=== PATIENT | male | born 1940 | race Caucasian/White ===

== ENCOUNTER → 2017-10-30 | Outpatient (CLI) | payer MEDICARE, BC ==
[~2017-10-30] MED LIST: ACET-2031 PO; ADV100/50 INH; ADV250/50 INH; ALB0.5 INH; ALB18R INH; AMLO-104 PO; AMLO-96 PO; AMLO2.5T74 PO; ASCO-201 PO; ATEN-65 PO; ATEN100T93 PO; AZIT-101 PO; BUDE90AE2; CALC500T42 PO; CEF300 PO; CEPH-13 PO; CETI-358 PO; CETI10CA8 PO; CHOL200038 PO; CYAN100088 PO; CYAN1TAB68 PO; ESCI10TA8 PO; FLUT12HF2 IH; FLUT16SP19 NS; FLUT16SP20; GLUC-232 PO; GLUC500C29 PO; GUALA600 PO; GUIDMUD PO; HCTZ25 PO; IBU200 PO; LISI-362 PO; LISI2.5T60 PO; LISI20TA29 PO; LUTE20CA11 PO; MON10; MONT10TA PO; MULT-60 PO; MULTI VITS; OMEG-36 PO; OMEP-125 PO; OXYC-865 PO; OXYGEN NS; PAN40 PO; POTA75TA PO; PRE10 PO; RIVA20TA PO; SODI44SP17 NS; SPIR25TA78 PO; SUC1 PO; TOLT1TAB PO; UNK BP MED; VALS1TAB8 PO; VITA-198 PO; VITAMIN B 12 PO; ZIA10 PO; [UNRECOGNIZED DRUG - CODE]
[2017-10-30 15:36] LABS: PLATELET COUNT, AUTOMATED 194 K/uL (150-450)
== END ==
LOC: LAB 15:28
PROVIDERS: ATTEND Family Medicine
DX: I10 Essential (primary) hypertension (principal); E55.9 Vitamin D deficiency, unspecified; E53.8 Deficiency of other specified B group vitamins
CPT/HCPCS: 36415; 82040; 82247; 82306; 82310; 82374; 82435; 82565; 82607; 82947; 84075; 84132; 84155; 84295; 84450; 84460; 84520; 85025

== ENCOUNTER 2018-05-23 01:39 | Inpatient (IN) | payer MEDICARE, BC ==
[2018-05-17 15:01] LABS: PLATELET COUNT, AUTOMATED 249 K/uL (150-450)
--- NOTE | 2018-05-17 15:10 | EKG ---
FACILITY: [facility] PATIENT NAME: TIGRE CABALLERO : [id number] MR: [id number] V: [id number] EXAM DATE: ORDERING PHYSICIAN: LOBO CABALLERO TECHNOLOGIST: Test Reason : Blood Pressure : / mmHG Vent. Rate : 074 BPM Atrial Rate : 258 BPM P-R Int : 000 ms QRS Dur : 094 ms QT Int : 420 ms P-R-T Axes : 000 -47 022 degrees QTc Int : 466 ms Atrial fibrillation Left anterior fascicular block Abnormal ECG When compared with ECG of 01-JUL-2017 22:15, No significant change was found Confirmed by Anselmo Engle ([id number]) on 05/17/2018 3:43:51 PM Referred By: Confirmed By:Anselmo Hernandez
[~2018-05-23] VITALS: Ht 170.2 cm; Wt 101.6 kg
[2018-05-23] VITALS (14 sets, daily range): BP systolic 94–135; BP diastolic 66–95
[~2018-05-23 01:39] MED LIST changes: +CALC1WAF; +CETI-169 PO; +CHOL200025 PO; +LOSA100T67 PO; +MELA1TAB38; -SPIR25TA78 PO; +SPIR25TA80 PO; +VIT1CAPS9
[2018-05-23] MEDS ORDERED: NORMOSOL R SOLN(*) 1000 ML BAG 1,000 ML IV PRN (06:00)
[2018-05-23] MEDS ORDERED: ACETAMINOPHEN 500 MG TAB PO ONE (06:00)
[2018-05-23] MEDS ORDERED: ceFAZolin(*) 2GM/D5W 50ML 50 ML IVPB ONE (06:00)
[2018-05-23] MEDS ORDERED: FAMOTIDINE 20 MG TAB PO ONE (06:00)
[2018-05-23] MEDS ORDERED: MIDAZOLAM 2 MG/2 ML VIAL IVP PRN (06:00)
[2018-05-23] MEDS ORDERED: PREGABALIN 75 MG CAPSULE PO ONE (06:00)
[2018-05-23] MEDS ORDERED: LIDOCAINE/SOD BICARB 8.4% SYR ID ONE (06:00)
[2018-05-23] MEDS ORDERED: LIDOCAINE MPF 1% 5 ML VIAL ONE (06:21)
[2018-05-23] MEDS ORDERED: PROPOFOL EMUL(*) 10MG/ML 20 ML 20 ML ONE (06:21)
[2018-05-23] MEDS ORDERED: ROCURONIUM BROM 10 MG/ML 10 ML ONE (06:21)
[2018-05-23] MEDS ORDERED: DEXAMETHASONE SOD PHOS 10MG/ML ONE (06:21)
[2018-05-23] MEDS ORDERED: ONDANSETRON 4 MG/2 ML VIAL ONE (06:21)
[2018-05-23] MEDS ORDERED: SODIUM CHLORIDE 0.9% ONE (06:23)
[2018-05-23] MEDS ORDERED: fentaNYL CITR 100 MCG/2 ML AMP ONE ×2 (06:24→11:42)
[2018-05-23] MEDS ORDERED: REMIFENTANIL HCL 1 MG VIAL ONE ×2 (06:25→09:35)
[2018-05-23] MEDS ORDERED: PHENYLEPHRINE 10 MG/1 ML VIAL ONE (06:31)
[2018-05-23] MEDS ORDERED: THROMBIN (BOVINE) 20,000 UNIT VIAL ONE (06:49)
[2018-05-23] MEDS ORDERED: TRANEXAMIC AC 1000 MG/10ML SDV 1,000 MG in DEXTROSE 5% 50 ML BAG 50 ML IVPB ONE (08:55)
[2018-05-23] MEDS ORDERED: ROPIVACAINE 0.2% 20 ML VIAL ONE (11:11)
--- NOTE | 2018-05-23 11:26 | RADIOLOGY IMAGING REPORT ---
FACILITY: [facility] [place] PATIENT NAME: Devonte Price : 1940 MR: [id number] V: [id number] EXAM DATE: [id number] ORDERING PHYSICIAN: LOBO PRICE TECHNOLOGIST: Location: [facility] [place] Patient: Devonte Price : 1940 Visit/Account:[id number] Date of Sevice: 05/23/2018 EXAMINATION: Intraoperative radiographs of the lumbar spine 05/23/2018 6:37 AM HISTORY: L-3-4, L4-5 LAMINECTOMIES COMPARISON: Lumbar MR 02/07/2018 FLUOROSCOPY TIME: No fluoroscopy was utilized FINDINGS: Intraoperative radiographic imaging was provided without active fluoroscopy. Imaging of t he lumbar spine shows posterior localization with final image demonstrating L3-L5 fusion. IMPRESSION: Intraoperative imaging during lower lumbar fusion. Report Dictated By: Carlos Alvarenga MD at 05/23/2018 11:13 AM Report E-Signed By: Carlos Alvarenga MD at 05/23/2018 11:22 AM WSN:[email or web address]
[2018-05-23] MEDS ORDERED: BISACODYL 10 MG SUPP PR PRN (12:25)
[2018-05-23] MEDS ORDERED: ONDANSETRON 4 MG/2 ML VIAL IVP PRN (12:25)
[2018-05-23] MEDS ORDERED: ACETAMINOPHEN 500 MG TAB PO PRN (12:25)
[2018-05-23] MEDS ORDERED: MAGNESIUM HYDROXIDE* 30ML UDCP PO PRN (12:25)
[2018-05-23] MEDS ORDERED: diphenhydrAMINE 25 MG CAP PO PRN (12:25)
[2018-05-23] MEDS ORDERED: FLUSH 10 ML SYR IVP PRN (12:25)
[2018-05-23] MEDS ORDERED: LR(*) 1000 ML BAG 1,000 ML IV PRN (12:25)
[2018-05-23] MEDS ORDERED: ACETAMINOPHEN(*)1000 MG/100 ML 100 ML IVPB PRN (12:25)
[2018-05-23] MEDS ORDERED: BENZOCAINE/MENTHOL 1 EACH LOZG PO PRN (12:25)
[2018-05-23] MEDS ORDERED: HYPROMELLOSE 0.4% LUB 15ML BTL OU PRN (13:35)
[2018-05-23] MEDS ORDERED: ALBUTEROL 8 GM INHALER INH PRN (13:35)
[2018-05-23] MEDS: oxyCODONE HCL 5 MG CAP PO PRN ×2 (13:40→22:23)
--- NOTE | 2018-05-23 13:47 | Hospitalist Progress Note ---
Subjective Progress Notes Subjective Patient seen post-op. Reviewed PMHx and medications. At present he reports doing well. No CP/SOB/N/V. Physical Exam Vital Signs Date Time Temp Pulse Resp B/P (MAP) Pulse Ox O2 Delivery O2 Flow Rate FiO2 05/23/18 12:44 97.9 63 12 116/84 (95) 94 Nasal Cannula 2.0 General Appearance: Alert, Awake Cardiovascular: Other (Irregular with distant tones) Respiratory: Clear to Auscultation GI: Soft and Non-Tender Extremities: Warm, Perfused Psych: Alert & Oriented X3 Assessment and Plan Problems: (1) Atrial fibrillation Status: Chronic Assessment & Plan: He appears to be rate controlled without medication. He has been managed with Xarelto 20mg daily for CVA prophylaxis. Will hold the Xarelto for now and resume when Dr. Price is agreeable. (2) HTN (hypertension) Status: Chronic Assessment & Plan: Will monitor BPs and resume losartan when needed. (3) DENISHA (obstructive sleep apnea) Status: Chronic Assessment & Plan: Continue CPAP. (4) Intrinsic asthma Status: Chronic Assessment & Plan: Continue Singulair and albuterol. He has also been using guaifenesin. ESTHELA MARTINI MD May 23, 2018 13:47
[2018-05-23] MEDS ORDERED: MELA5TAB6 PO (13:53)
[2018-05-23] MEDS ORDERED: LOSA50TA72 PO (13:53)
--- NOTE | 2018-05-23 14:33 | OPERATIVE REPORT 1 ---
EVENT DATE: May 23, 2018 SURGEON: Tony Price MD ANESTHESIOLOGIST: Jose Bahena MD ANESTHESIA: General endotracheal. GOVERNMENT PROGRAM MANAGER: YESSI He PREOPERATIVE DIAGNOSIS Lumbar spinal stenosis with lumbar third vertebra-lumbar fourth vertebra (L3-L4) and lumbar fourth vertebra-lumbar fifth vertebra (L4-L5) spondylolisthesis. POSTOPERATIVE DIAGNOSIS Lumbar spinal stenosis with lumbar third vertebra-lumbar fourth vertebra (L3-L4) and lumbar fourth vertebra-lumbar fifth vertebra (L4-L5) spondylolisthesis. PROCEDURE PERFORMED Lumbar third vertebra (L3)- lumbar fifth vertebra (L5) laminectomy with lumbar third vertebra (L3)-lumbar fifth vertebra (L5) posterior lateral instrumented fusion. IV FLUIDS 2200 cc. ESTIMATED BLOOD LOSS 160 cc. IMPLANTS USED 6.5 mm x 50 mm Reline pedicle screws from [employer] x6, 5.5 mm x 60 mm connecting rods from [employer] x2 and locking caps from [employer] 46. SPECIMENS None. DRAINS None. COMPLICATIONS None, DISPOSITION Post-anesthesia Care Unit. INDICATIONS FOR SURGERY Mr. Price is a 78-year-old gentleman who presented to my clinic with the chief complaint of radiating bilateral lower extremity pain, numbness and tingling. He noted significant decrease in walking tolerance secondary to heaviness and tiredness of the legs, worse on the right than the left. He did have some urge incontinence of urine but no issues with fecal incontinence. His physical examination was significant for a positive straight leg raising maneuver bilaterally with decreased strength in the right tibialis anterior at 4/5 compared to 5/5 on the left. His extensor hallucis longus was 4+/5 on the left, 4/5 on the right and peroneals were 4/5 bilaterally. Light touch sensation was intact in all dermatomal distributions. Diagnostic studies showed an auto fusion of L2-L3 and severe spinal stenosis at L3-L4 and L4-L5 with a retrolisthesis of L3 and L4 and anterolisthesis of L4 and L5. Secondary to ongoing symptoms and failure of nonsurgical treatment including physical therapy, injections, medications and activity modifications, the patient was offered and elected to undergo L3-L5 laminectomy and L3-L5 posterior lateral instrumented fusion. Prior to surgery, I explained in detail to the patient the possible risks of surgery. These risks include bleeding, infection, damage to surrounding structures, need for further surgery, persistent and/or worsening pain, nerve root injury, spinal fluid lead, meningitis, , blindness, sexual dysfunction, autonomic nervous system dysfunction and other unforeseen medical and surgical complications. An understanding that in general spinal surgery is more predictive at improving extremity discomfort than axial spine pain was stressed. DESCRIPTION OF PROCEDURE On the date of surgery, the patient was met in the preoperative hold area and all questions were answered. The operative site was identified and marked by myself. He was brought in good condition to the operating room and after succumbing to anesthesia was positioned in the prone position on a Mat table. All bony protuberances and soft tissues were well padded in the standard fashion. Care was taken to maintain appropriate perfusion pressures during anesthesia. Preoperative antibiotics were administered according to the appropriate timing schedule. At the conclusion of the procedure, sponge and needle counts were correct x2. A final time-out was undertaken by members of the operating team to confirm correct patient, correct levels and correct surgery. A vertical midline incision was then made over the intended spinal levels and sharp dissection was carried out down to the posterior elements. The lumbar dorsal fascia was incised with electrocautery device and soft tissues were elevated off the posterior elements in a subperiosteal manner. A lateral radiograph was obtained to confirm appropriate spinal levels. Starting points for pedicle screws at L3, L4 and L5 were cleared of soft tissues using the electrocautery device. This point was at approximately the intersection of the pars intra-articularis, the mid point of the transverse process and the lateral border of the superior articular process of each respected vertebrae. We then packed the lateral gutters with thrombin soaked sponges and proceeded with the laminectomy. A Leksell rongeur and Ben bone cutter was used to remove the spinous processes of L3 and L4. A midline decompression was then performed, first thinning the lamina with the Leksell rongeur and a high speed bur. The canal was entered by undermining the superior insertion of the ligamentum flavum from the inferior surface of the L4 lamina. A Ellsworth elevator was used to separate the dura for many adhesions to surrounding bone and soft tissue prior to use of the Kerrison punch. A midline decompression was performed using 3-0 and 4-0 Kerrison rongeurs. We then turned our attention to bilateral lateral recess decompressions at both the L3-L4 and the L4-L5 levels. There was severe stenosis secondary to facet hypertrophy and ligamentum flavum thickening so this took quite some time. Ultimately, however, we were able to achieve an excellent decompression and at the conclusion of the decompression a Bren elevator was run down the lateral recesses as well as out the foramina of involved nerve roots to ensure complete decompression. Hemostasis was obtained by utilizing FloSeal and surgical patties in the lateral recesses of the canal bilaterally. Attention was then turned to placement of pedicle screws. Starting points for pedicle screws were identified bilaterally at L3, L4 and L5. Again, this was at approximately the intersection of the pars intra-articularis, the midpoint of the transverse process and the lateral border of the facet/superior articular process. A 5 mm bur was used to decorticate the overlying bone and a Lenke type probe was advanced against resistance through the pedicle. A ball tip feeler was used to palpate the pedicle superiorly, inferiorly, medially and laterally as well as distally to confirm absence of bony breaching. Appropriate length screws were selected; in this case, 6.5 mm x 50 mm in length. Screws were placed in this manner bilaterally at L3, L4 and L5 using the same size screw for all pedicles. Each screw was tested with neurophysiologic monitoring and this confirmed absence of bony breaching. 5.5 mm x 60 mm connecting rods were then selected. The screw head adjustor was used to align the tulips and the connecting rods were then placed. A locking cap was placed and tightened in the L3 screws bilaterally and then we used a reduction tool to reduce the L4 vertebrae using the pedicle screws. Locking caps were then placed in all screws bilaterally and a lateral radiograph was obtained that showed excellent positioning of the screws. The final tightening device was then used and all screws were finally tightened. The transverse process of the L3-L4 and L4-L5 vertebrae were then decorticated with a high speed bur and local bone graft that had been run through the bone mill was packed in the lateral gutters for a posterior lateral fusion. The wound had previously been irrigated with greater than 2 liters of copious sterile saline solution and at this point we then closed the incision with a running suture for the deep fascia, interrupted sutures for the subcutaneous tissue and a running subcuticular skin stitch. Sponge and needle counts were correct x2. POSTOPERATIVE CARE PLAN The patient will remain in the hospital until he meets discharge criteria, tolerating p.o. with good pain control and with clearance from physical therapy. He will follow up in my clinic in two weeks' time for wound check and examination. MILLIE
[2018-05-23] MEDS ORDERED: ceFAZolin(*) 2GM/D5W 50ML 50 ML IVPB SCH (15:00)
[2018-05-23] MEDS: MONTELUKAST SODIUM 10 MG TAB PO SCH (21:04)
[2018-05-23] MEDS: DOCUSATE SODIUM 100 MG CAP PO SCH (21:04)
[2018-05-23] MEDS: guaiFENesin 600 MG TABCR PO SCH (21:04)
[2018-05-23] MEDS: CEFAZOLIN IVPB SCH (22:23)
[2018-05-23] MEDS: NS 0.9% IVPB SCH (22:23)
[2018-05-24 05:48] VITALS: BP 123/80
[2018-05-24] MEDS: oxyCODONE HCL 5 MG CAP PO PRN ×4 (06:03→20:38)
[2018-05-24] MEDS: DIAZEPAM 5 MG TAB PO PRN ×3 (06:03→20:39)
[2018-05-24] MEDS ORDERED: SIMETHICONE 80 MG CHEW CHEW PRN (06:05)
[2018-05-24] MEDS: NS 0.9% IVPB SCH (06:17)
[2018-05-24] MEDS: CEFAZOLIN IVPB SCH (06:17)
[2018-05-24 07:09] VITALS: BP 108/80
[2018-05-24] MEDS: DOCUSATE SODIUM 100 MG CAP PO SCH ×2 (09:18→20:38)
[2018-05-24] MEDS: guaiFENesin 600 MG TABCR PO SCH ×2 (09:18→20:38)
[2018-05-24] MEDS: HYPROMELLOSE 0.4% LUB 15ML BTL OU PRN ×2 (09:19→11:31)
[2018-05-24] MEDS: LOSARTAN POTASSIUM 50 MG TAB PO SCH (09:20)
[2018-05-24 09:26] VITALS: BP 115/69
--- NOTE | 2018-05-24 11:05 | RADIOLOGY IMAGING REPORT ---
FACILITY: [facility] [place] PATIENT NAME: Devonte Price : 1940 MR: [id number] V: [id number] EXAM DATE: ORDERING PHYSICIAN: LOBO PRICE TECHNOLOGIST: Location: [facility] Patient: Devonte Price : 1940 Visit/Account:[id number] Date of Sevice: 05/24/2018 Two-view lumbar spine COMPARISONS: Views of the lumbar spine dated May 23, 2018 ADDITIONAL PERTINENT HISTORY: Postop FINDINGS: Postoperative changes: Patient status post previous posterior interbody fusion of L3-L5. Bilateral l aminectomies at L3-L4 and L4-L5. Vertebral body heights and alignments: Mild retrolisthesis of L3 on L4, L2 on L3 and L1 on L2. Mild retrolisthesis of L5 on S1. Mild scoliotic curvature convex to the left centered at L2-L3. Vertebral bodies: Endplate sclerosis and osteophyte formation and facet hypertrophic changes at multi ple levels within the lumbar spine. No bony fractures noted. Disc spaces: Disc space narrowing at multiple levels within the lumbar spine. Visualized bony pelvis: Negative. Surrounding soft tissues: Minimal atherosclerotic disease of the abdominal aorta. IMPRESSION: 1. Scoliotic, spondylitic and postoperative changes as detailed above. 2. No acute appearing bony abnormalities. Report Dictated By: Valentin Miller MD at 05/24/2018 10:57 AM Report E-Signed By: Valentin Miller MD at 05/24/2018 11:00 AM WSN:[email or web address]
[2018-05-24] MEDS: HYDROmorphone HCL 2 MG/ML SDV IVP PRN (11:14)
[2018-05-24 11:24] VITALS: BP 106/75
[2018-05-24 12:00] VITALS: Ht 170.2 cm; Wt 101.6 kg
--- NOTE | 2018-05-24 13:10 | Hospitalist Progress Note ---
Subjective Progress Notes Subjective He has complaints of back pain. He had no acute events overnight. Patient Complains of: Cardiovascular: No: Chest Pain Respiratory: No: Shortness of Breath Physical Exam Vital Signs Date Time Temp Pulse Resp B/P (MAP) Pulse Ox O2 Delivery O2 Flow Rate FiO2 05/24/18 11:24 99.5 90 12 106/75 (85) 91 Nasal Cannula 2.0 Intake and Output 05/24/18 06:59 Intake Total 3648 ml Output Total 900 ml Balance 2748 ml Intake Oral 1820 ml IV Total 1828 ml Output Urine Total 900 ml # Voids 2 General Appearance: Alert, Awake, No Acute Distress, Afebrile Neuro: No Gross deficits Cardiovascular: Regular Rate and Rhythm Respiratory: No Respiratory Distress, Clear to Auscultation Psych: Alert & Oriented X3, Appropriate Mood & Affect Assessment and Plan Problems: (1) Atrial fibrillation Status: Chronic Assessment & Plan: He appears to be rate controlled without medication. He has been managed with Xarelto 20mg daily for CVA prophylaxis. Will hold the Xarelto for now and resume when Dr. Price is agreeable. (2) HTN (hypertension) Status: Chronic Assessment & Plan: Will monitor BPs and resume losartan when needed. (3) DENISHA (obstructive sleep apnea) Status: Chronic Assessment & Plan: Continue CPAP. (4) Intrinsic asthma Status: Chronic Assessment & Plan: Continue Singulair and albuterol. He has also been using guaifenesin. Exam Sepsis Risk: No Definite Risk DOLORES AMADORP May 24, 2018 13:10
[2018-05-24 14:31] VITALS: BP 120/82
[2018-05-24] MEDS: APAP/HYDROCODONE 325/5 TAB PO PRN (16:08)
[2018-05-24 19:59] VITALS: BP 114/81
[2018-05-24] MEDS: MONTELUKAST SODIUM 10 MG TAB PO SCH (20:38)
[2018-05-25] MEDS: oxyCODONE HCL 5 MG CAP PO PRN ×7 (00:16→23:56)
[2018-05-25 00:19] VITALS: BP 116/84
[2018-05-25] MEDS: DIAZEPAM 5 MG TAB PO PRN ×3 (05:27→19:28)
[2018-05-25 07:37] VITALS: BP 102/78
[2018-05-25] MEDS: guaiFENesin 600 MG TABCR PO SCH ×2 (08:40→21:40)
[2018-05-25] MEDS: DOCUSATE SODIUM 100 MG CAP PO SCH ×2 (08:40→21:40)
[2018-05-25] MEDS: LOSARTAN POTASSIUM 50 MG TAB PO SCH (09:00)
[2018-05-25] MEDS: HYDROmorphone HCL 2 MG/ML SDV IVP PRN (09:15)
[2018-05-25] MEDS: RIVAROXABAN 10 MG TAB PO SCH (11:22)
--- NOTE | 2018-05-25 11:36 | Hospitalist Progress Note ---
Subjective Progress Notes Subjective He has complaints of pain and decreased mobility. He had no acute events overnight. Patient Complains of: Cardiovascular: No: Chest Pain Respiratory: No: Shortness of Breath Physical Exam Vital Signs Date Time Temp Pulse Resp B/P (MAP) Pulse Ox O2 Delivery O2 Flow Rate FiO2 05/25/18 08:10 92 Nasal Cannula 1.0 05/25/18 07:37 99.0 86 20 102/78 (86) Intake and Output 05/25/18 06:59 Intake Total 862 ml Output Total 500 ml Balance 362 ml Intake Oral 812 ml IV Total 50 ml Output Urine Total 500 ml # Voids 1 General Appearance: Alert, Awake, No Acute Distress, Afebrile Neuro: No Gross deficits Cardiovascular: Regular Rate and Rhythm Respiratory: No Respiratory Distress, Clear to Auscultation Psych: Alert & Oriented X3, Appropriate Mood & Affect Assessment and Plan Problems: (1) Atrial fibrillation Status: Chronic Assessment & Plan: He appears to be rate controlled without medication. He has been managed with Xarelto 20mg daily for CVA prophylaxis. His Xarelto will be restarted today 05/25. (2) HTN (hypertension) Status: Chronic Assessment & Plan: Will monitor BPs and resume losartan when needed. (3) DENISHA (obstructive sleep apnea) Status: Chronic Assessment & Plan: Continue CPAP. (4) Intrinsic asthma Status: Chronic Assessment & Plan: Continue Singulair and albuterol. He has also been using guaifenesin. Exam Sepsis Risk: No Definite Risk DOLORES AMADOR CORNER CUTTER MACHINE OPERATOR May 25, 2018 11:36
[2018-05-25 12:22] VITALS: BP 111/92
[2018-05-25] MEDS: MONTELUKAST SODIUM 10 MG TAB PO SCH (21:40)
[2018-05-25 21:41] VITALS: BP 98/83
--- NOTE | 2018-05-26 06:35 | Hospitalist Progress Note ---
Subjective Progress Notes Subjective He is still having significant surgical site pain and some spasms. Physical Exam Vital Signs Date Time Temp Pulse Resp B/P (MAP) Pulse Ox O2 Delivery O2 Flow Rate FiO2 05/25/18 21:41 92 Nasal Cannula 1.0 05/25/18 21:41 99.1 85 16 98/83 (88) Intake and Output 05/26/18 06:59 Intake Total 1340 ml Output Total 450 ml Balance 890 ml Intake Oral 1340 ml Output Urine Total 450 ml # Voids 2 General Appearance: Alert, Awake Cardiovascular: Other (Irregular distant tones) Respiratory: Clear to Auscultation (anteriorly) Assessment and Plan Problems: (1) Atrial fibrillation Status: Chronic Assessment & Plan: He has been rate controlled without medication. He is now back on his usual Xarelto 20mg daily for CVA prophylaxis. (2) HTN (hypertension) Status: Chronic Assessment & Plan: Will monitor BPs and resume losartan when needed. (3) DENISHA (obstructive sleep apnea) Status: Chronic Assessment & Plan: Continue CPAP. (4) Intrinsic asthma Status: Chronic Assessment & Plan: Continue Singulair and albuterol. He has also been using guaifenesin. Exam Sepsis Risk: No Definite Risk ESTHELA MARTINI MD May 26, 2018 06:35
[2018-05-26] MEDS: HYDROmorphone HCL 2 MG/ML SDV IVP PRN ×2 (07:29→18:18)
[2018-05-26 08:04] VITALS: BP 98/71
[2018-05-26] MEDS: DOCUSATE SODIUM 100 MG CAP PO SCH ×2 (09:00→20:40)
[2018-05-26] MEDS: RIVAROXABAN 10 MG TAB PO SCH (09:00)
[2018-05-26] MEDS: LOSARTAN POTASSIUM 50 MG TAB PO SCH (09:00)
[2018-05-26] MEDS: guaiFENesin 600 MG TABCR PO SCH ×2 (09:00→20:40)
[2018-05-26] MEDS: oxyCODONE HCL 5 MG CAP PO PRN (09:36)
[2018-05-26] MEDS: DIAZEPAM 5 MG TAB PO PRN ×2 (09:37→16:14)
[2018-05-26 12:20] VITALS: BP 113/85
[2018-05-26] MEDS: APAP/HYDROCODONE 325/5 TAB PO PRN ×2 (12:27→23:50)
[2018-05-26 16:03] VITALS: BP 113/83
[2018-05-26] MEDS: ALBUTEROL 8 GM INHALER INH PRN (16:57)
[2018-05-26 20:33] VITALS: BP 129/84
[2018-05-26] MEDS: MONTELUKAST SODIUM 10 MG TAB PO SCH (21:23)
[2018-05-26 23:33] VITALS: BP 130/86
[2018-05-27 03:28] VITALS: BP 107/73
[2018-05-27 05:48] LABS: PLATELET COUNT, AUTOMATED 185 K/uL (150-450)
[2018-05-27 07:01] VITALS: BP 112/78
[2018-05-27] MEDS: guaiFENesin 600 MG TABCR PO SCH ×2 (08:29→22:06)
[2018-05-27] MEDS: DIAZEPAM 5 MG TAB PO PRN (08:29)
[2018-05-27] MEDS: oxyCODONE HCL 5 MG CAP PO PRN ×2 (08:30→15:35)
[2018-05-27] MEDS: DOCUSATE SODIUM 100 MG CAP PO SCH ×2 (08:31→22:06)
[2018-05-27] MEDS: RIVAROXABAN 10 MG TAB PO SCH (08:31)
[2018-05-27] MEDS: LOSARTAN POTASSIUM 50 MG TAB PO SCH (08:37)
--- NOTE | 2018-05-27 10:37 | Hospitalist Progress Note ---
Subjective Progress Notes Subjective 78M admitted for lumbar stenosis, LYNDA overnight. Sleepy this am after pain Rx. Patient Complains of: Neurological: No: Confusion, Weakness Gastrointestinal: No Nausea, No Vomiting Musculoskeletal: Pain Physical Exam Vital Signs Date Time Temp Pulse Resp B/P (MAP) Pulse Ox O2 Delivery O2 Flow Rate FiO2 05/27/18 07:01 98.0 72 18 112/78 (89) 96 Bi-PAP 1.0 Intake and Output 05/27/18 06:59 Intake Total 175 ml Output Total 280 ml Balance -105 ml Intake Oral 175 ml Output Urine Total 280 ml # Voids 5 General Appearance: No Acute Distress Neuro: No Gross deficits Eyes: PERRLA ENT: Normal (on simple mask.) Neck: No Masses Cardiovascular: Normal Rhythm & Peripheral Pulses Respiratory: Clear to Auscultation GI: Soft and Non-Tender Musculoskeletal: Other (back/hip pain) Extremities: Soft and Non Tender, Warm, Pulses; No Edema Integumentary: Skin Intact without Lesion / Mass Result Diagram: 05/27/1852405/27/18524 Assessment and Plan Problems: (1) Atrial fibrillation Status: Chronic Assessment & Plan: He has been rate controlled without medication. He is now back on his usual Xarelto 20mg daily for CVA prophylaxis. (2) Spinal stenosis Assessment & Plan: Post laminectomy and fusion. Reportedly progressing slow. Reports significant pain and is very lethargic due to pain medications. Per primary. (3) HTN (hypertension) Status: Chronic Assessment & Plan: Will monitor BPs and resume losartan when needed. (4) DENISHA (obstructive sleep apnea) Status: Chronic Assessment & Plan: Continue CPAP. (5) Intrinsic asthma Status: Chronic Assessment & Plan: Continue Singulair and albuterol. He has also been using guaifenesin. Exam Sepsis Risk: No Definite Risk GRIGGS ALLIE RODRÍGUEZ DO May 27, 2018 10:37
[2018-05-27] MEDS: APAP/HYDROCODONE 325/5 TAB PO PRN (12:05)
[2018-05-27] MEDS: POLYETHYLENE GLYCOL 17 GM PKT PO SCH (12:05)
--- NOTE | 2018-05-27 12:15 | RADIOLOGY IMAGING REPORT ---
FACILITY: [facility] [place] PATIENT NAME: Devonte Price : 1940 MR: [id number] V: [id number] EXAM DATE: ORDERING PHYSICIAN: TYREE ESPINOZA TECHNOLOGIST: [place] [facility] [place]onte [place] : 1940 Visit/Account:[id number] Date of Sevice: 05/27/2018 LUMBAR SPINE 2 OR 3 VIEW INDICATION: Postop laminectomy. COMPARISON: February 21, 2018. FINDINGS: AP and lateral view of the lumbar spine. There are 5 nonrib-bearing lumbar vertebral bodi es. Postsurgical changes from L3 through L5 with by pedicular screws and posterior rods in bony fusio n changes. The alignment is maintained and unchanged from previous examination. No periprosthetic reymundo encies. No acute abnormality seen in the postsurgical region. Lumbar spine does show a continued left ivy convexity. No compression fractures, bony lesions or spondylolysis. There is diffuse degenerativ e changes with disposition, endplate changes, ostitis and facet arthropathy. The endplates are mainta ined. The pedicles are well seen. Soft tissues unremarkable. Surgical clips in the right abdomen is u nchanged. IMPRESSION: 1. Postsurgical changes from L3 through L5 without sequelae. 2. Degenerative changes without acute abnormality. Report Dictated By: Juan Luis Peter at 05/27/2018 12:08 PM Report E-Signed By: Juan Luis Peter at 05/27/2018 12:11 PM WSN:[id number]
[2018-05-27 15:29] VITALS: BP 108/75
[2018-05-27 19:19] VITALS: BP 126/59
[2018-05-27] MEDS: MONTELUKAST SODIUM 10 MG TAB PO SCH (22:06)
[2018-05-27 23:03] VITALS: BP 120/74
[2018-05-28] MEDS ORDERED: DIAZEPAM 5 MG TAB PO PRN (07:30)
--- NOTE | 2018-05-28 07:49 | Hospitalist Progress Note ---
Subjective Progress Notes Subjective He has been very slow to mobilize. He continues to have surgical site pain. Physical Exam Vital Signs Date Time Temp Pulse Resp B/P (MAP) Pulse Ox O2 Delivery O2 Flow Rate FiO2 05/27/18 23:03 99.1 95 20 120/74 (89) 90 Oxy Mask 1.0 Intake and Output 05/28/18 06:59 Intake Total 300 ml Output Total 400 ml Balance -100 ml Intake Oral 300 ml Output Urine Total 400 ml # Voids 4 # Bowel Movements 1 General Appearance: Alert, Awake Cardiovascular: Regular Rate and Rhythm Respiratory: Clear to Auscultation Extremities: Warm, Perfused Result Diagram: 05/28/18 0724 05/27/18 0525 Assessment and Plan Problems: (1) Atrial fibrillation Status: Chronic Assessment & Plan: He has been rate controlled without medication. He is now back on his usual Xarelto 20mg daily for CVA prophylaxis. (2) Spinal stenosis Assessment & Plan: Post laminectomy and fusion. Progressing very slowly. Reports significant pain and is somewhat lethargic due to pain medications. Will try to achieve reasonable pain control with Lortab/low dose diazepam. (3) HTN (hypertension) Status: Chronic Assessment & Plan: His BPs have been in normal range without medications. Will monitor BPs and resume losartan only when needed. (4) DENISHA (obstructive sleep apnea) Status: Chronic Assessment & Plan: Continue CPAP. (5) Intrinsic asthma Status: Chronic Assessment & Plan: Continue Singulair and albuterol. He has also been using guaifenesin. Exam Sepsis Risk: No Definite Risk ESTHELA MARTINI MD May 28, 2018 07:49
[2018-05-28 08:13] VITALS: BP 132/88
[2018-05-28] MEDS: DOCUSATE SODIUM 100 MG CAP PO SCH (08:50)
[2018-05-28] MEDS: RIVAROXABAN 10 MG TAB PO SCH (08:51)
[2018-05-28] MEDS: guaiFENesin 600 MG TABCR PO SCH (08:51)
[2018-05-28] MEDS: APAP/HYDROCODONE 325/5 TAB PO PRN (08:51)
[2018-05-28] MEDS: POLYETHYLENE GLYCOL 17 GM PKT PO SCH (08:51)
[2018-05-28] MEDS: HYPROMELLOSE 0.4% LUB 15ML BTL OU PRN (08:53)
[2018-05-28] MEDS: ALBUTEROL 8 GM INHALER INH PRN (08:53)
== END 2018-05-28 11:10 | DRG 460 ==
LOC: OR 01:39 → MED 12:45
PROVIDERS: ADMIT Orthopaedic Surgery; ATTEND Orthopaedic Surgery
PROC: 01NB0ZZ Release Lumbar Nerve, Open Approach (ICD-10-PCS; 2018-05-23)
PROC: 5A09357 Assistance with Respiratory Ventilation, Less than 24 Consecutive Hours, Continuous Positive Airway Pressure (ICD-10-PCS; 2018-05-23)
PROC: 0SG1071 Fusion of 2 or more Lumbar Vertebral Joints with Autologous Tissue Substitute, Posterior Approach, Posterior Column, Open Approach (ICD-10-PCS; principal; 2018-05-23 07:11)
DX: M48.061 Spinal stenosis, lumbar region without neurogenic claudication (principal); M43.16 Spondylolisthesis, lumbar region; M54.16 Radiculopathy, lumbar region; I48.2 Chronic atrial fibrillation; I10 Essential (primary) hypertension; G47.33 Obstructive sleep apnea (adult) (pediatric); J45.909 Unspecified asthma, uncomplicated; M10.9 Gout, unspecified; K21.9 Gastro-esophageal reflux disease without esophagitis; G89.18 Other acute postprocedural pain; Z79.01 Long term (current) use of anticoagulants; Z99.81 Dependence on supplemental oxygen; Z98.84 Bariatric surgery status; Z90.49 Acquired absence of other specified parts of digestive tract
CPT/HCPCS: 36415; 72020; 72100; 82040; 82247; 82310; 82374; 82435; 82565; 82947; 84075; 84132; 84155; 84295; 84443; 84450; 84460; 84520; 85018; 85025; 86850; 86900; 86901; 93005; 94640; 97161; C1713; J0690; J1100; J1170; J2001; J2370; J2405; J2704; J2795; J3010; J3535; J7050

== ENCOUNTER 2018-05-28 11:10 | Inpatient (IN) | payer MEDICARE, BC ==
[2018-05-24 12:00] VITALS: Ht 170.2 cm; Wt 102.1 kg
[~2018-05-28] VITALS: Ht 170.2 cm; Wt 102.1 kg
[~2018-05-28 11:10] MED LIST changes: +AMLO-111 PO; -AMLO-96 PO; -AMLO2.5T74 PO; +AMLO2.5T76 PO; -LOSA100T67 PO; +LOSA100T69 PO; +LOSA50TA74 PO; +MELA5TAB6 PO
[2018-05-28] MEDS ORDERED: ACETAMINOPHEN 500 MG TAB PO PRN (11:43)
[2018-05-28] MEDS ORDERED: BENZOCAINE/MENTHOL 1 EACH LOZG PO PRN (11:43)
[2018-05-28] MEDS ORDERED: HYPROMELLOSE 0.4% LUB 15ML BTL OU PRN (11:43)
[2018-05-28] MEDS ORDERED: MAGNESIUM HYDROXIDE* 30ML UDCP PO PRN (11:43)
[2018-05-28] MEDS ORDERED: APAP/HYDROCODONE 325/5 TAB PO PRN (11:43)
[2018-05-28] MEDS ORDERED: BISACODYL 10 MG SUPP PR PRN (11:43)
[2018-05-28 11:55] VITALS: BP 122/73
[2018-05-28] MEDS ORDERED: FLUTICASONE PROP 0.05% 16 GM ENA PRN (12:05)
[2018-05-28 16:10] VITALS: BP 122/79
--- NOTE | 2018-05-28 17:34 | PT ECF NOTE ---
Type of Note: Initial Note Primary Medical Diagnosis: S/P L3-L5 laminectomy with L-L5 posterior lateral instrumented fusion (05/23/18) Physical Therapy Evaluation Date: 05/28/18 SUBJECTIVE: Prior Hospitalization: [facility] 05/23/18-05/28/18 Prior Level of Function: Perla with use of RW (pt's spouse reports that he was ambulating short household distances at [facility]) Prior Living Status: Single level house, Spouse Community Services: Support adequate Home Accessibility: 3 stairs with rails, All needs on one level Equipment Owned: Front wheeled walker, Rollator Medical Complications/Past Medical History: See EMR for details Psychosocial Support: supportive Pain Scale (0-10): 5-6/10 OBJECTIVE: Strength: Right Lower Extremity: DF: <3/5 Knee flexion: 4/5 Knee extension:3+/5 Hip flexion: <3/5 Left Lower Extremity: DF: 4/5 Knee flexion: 4/5 Knee extension: 4/5 Hip flexion: <3/5 ROM: Lacking full AROM of R) DF Sensation: WNL Other Neuro findings: None noted Bed Mobility: Not tested, pt up in chair when PT arrived for evaluation Transfers: Max A x2 for STS with RW, MaxA x1 STS with EZ lift Gait: Pt unable Stairs: Not attempted Timed Up and Go (>12 seconds indicated increased risk for falls): Pt unable 10 meter walk test (0.6m/second cannot function independently): Pt unable Other Objective Measures: Pt unable ASSESSMENT: PT provided step by step verbal and tactile cues for scooting to edge of chair as well as foot and hand placement prior to initiation of STS transfer. Pt requires increased time and encouragement in preparation for transfers. PT/OT provided mod-maxA x 2 for STS with RW. Pt reports glut spasm and inability to stand, therefore sat back into bree chair. A second STS with RW was completed, but pt was unable to successfully initiate ambulation upon standing. EZ lift was utilized with maxAx1 in order to stand. 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 Pt currently reports lack of confidence with all mobility. He will benefit from skilled PT intervention in order to increase tolerance to all functional mobility and decrease need of assistance from others prior to d/c home. Problem List/Current Limitations: Pain Decreased activity edvin Decreased strength Decreased ROM Decreased balance Decreased problem solving Decreased initiation Short Term Goals: 1: Pt to complete STS transfers with Perla and least restrictive AD 2: Pt to ambulate 50' with Perla and least restrictive AD 3: Pt to complete bed mobility with log roll technique and Perla 4: Pt to demonstrate ability to blajinder/doff LSO with Alisha from spouse. Brake Lining Maker Goals: Pt to d/c home with decreased need of assistance from others Patient Goals: Discharge home with spouse Rehabilitation Prognosis: Fair Barriers for Discharge: High levels of pain, increased somnolence with use of pain medication, decreased confidence PLAN: The patient will benefit from skilled physical therapy services 5 times per week for 2 weeks including: Therapeutic Exercise Therapeutic Activities Transfer Training Gait Training Stair Training Manual Therapy ADL's Safety Training Neuromuscular Re-educ. Pt/Caregiver Training Bed Mobility Thank you for this referral. If you have any questions, concerns, or comments about this report or plan, please contact me at . Ju De Guzman, PT, DPT [facility]
--- NOTE | 2018-05-28 18:21 | OT ECF NOTE ---
Type of Note: Initial Note Primary Medical Diagnosis: Generalized weakness s/p L3-L5 laminectomy with L3-L5 PLIF. Lumbar precautions, LSO donned as tolerated with ambulation Occupational Therapy Evaluation Date: 05/28/18 SUBJECTIVE: Prior Hospitalization: [facility] 05/23/18 thru 05/28/18. DOS: 05/23/[address] Price Prior Level of Function: Modified Independent with 4WW. Assist from spouse for IADLs. Spouse reports pt ambulated short household distances prior to sx. Prior Living Status: Single level house Spouse Assist by family Community Services: No known needs Home Accessibility: Stairs with rails All needs on one level Tub/shower combination Equipment Owned: Front wheeled walker Rollator Extended tub bench Medical Complications/Past Medical History: Please refer to EMR Psychosocial Support: Supportive spouse Pain Scale (0-10): 10.5/10. Emotional support, positioning, and ice offered. OBJECTIVE: Strength: MMT: Right Left Shoulder Flexion WFL WFL Elbow Flexion WFL WFL Wrist Extension WFL WFL Casing Material Weigher WFL WFL (5= normal, 4= good, 3= fair, 2= poor, 1= trace) ROM: Both upper extremities, WFL Sensation: Intact, no concerns Functional Transfer: Assistive Device: Front wheeled [id number] Ax2 sit<>stands. Pt unable to tolerate upright position or ambulation EZ/Patient assisted lift-Max Ax1 Gait belt ADL: Upper body dressing: Assistive device: Upper body dressing ability: N/T Lower body dressing: Assistive device: None-Will benefit from LB AE education Lower body dressing ability: Max-Total Ax1 with use of sit<>stand Toileting: Assistive device: Raised toilet seat, Grab rails Toileting ability: Maximum assistance Grooming/hygiene: Assistive device: Grooming ability: N/T Bathing: Assistive device: Bathing ability: N/T Standardized Assessment: Cassi Index of Activities of Daily Livin/20 upon initial evaluation (05/28/18). ASSESSMENT: "El[place]" presents to [facility] requiring 2 person assist for sit<>stands with RW and Max Ax1 for mobility with EZ lift. At [facility], he was ambulating Mod (I) household distances and (I) with ADLs. He will benefit from skilled OT service to improve activity tolerance and optimize (I) with ADLs. Problem List/Current Limitations: Pain Decreased activity tolerance Decreased strength Decreased ROM Generalized weakness Poor safety awareness Decreased initiation Short Term Goals: 1) Pt will be Mod (I) toilet task. 2) Pt will be Mod (I) UB/LB dressing. 3) Pt will be Mod (I) grooming/hygiene. 4) Pt will be Min A shower task. 5) Pt Cassi Index of ADLs score will improve by 2 points. Roundhouse Supervisor Goals: Return home with assist from spouse for IADLs and possible service s Patient Goals: Return home Rehabilitation Prognosis: Fair Barriers to Discharge: Pain, Motivation, Decreased mobility at PLOF PLAN: The patient will benefit from skilled occupational therapy services 5 times per week for 2 weeks including: Ther ex ADL training Safety training Ther act IADL training Transfer training Adaptive equip training Bed mobility Energy conservation Thank you for this referral. If you have any questions, concerns, or comments about this report or plan, please contact me at . Taryn Myers MS, OTR/L Occupational Therapist MILLIE
--- NOTE | 2018-05-28 18:32 | Consultant Pharmacy Review ---
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 Lexicomp Interaction Analysis A = No known interaction C = Monitor therapy X = Avoid combination B = No action needed D = Consider therapy modification Drugs in this analysis: Acetaminophen; Albuterol; Ascorbic Acid; Beta-Carotene; Bisacodyl; Cepacol (CAN); Cetirizine (Systemic); Cholecalciferol; Cyanocobalamin; DiazePAM; Docusate Sodium (SYN); Fluticasone (Nasal); Glucosamine; GuaiFENesin; Lortab; Maalox [OTC]; MiraLax [OTC]; Montelukast; Multivitamins/Minerals (with AE, No Iron); Simethicone; Vitamin E (Systemic); Xarelto * Drug-Drug Interactions D Bisacodyl Maalox [OTC] (Antacids) D Cetirizine (Systemic) (MUD PLANT OPERATOR Depressants) Lortab (HYDROcodone) D DiazePAM (MUD PLANT OPERATOR Depressants) Lortab (HYDROcodone) C Cetirizine (Systemic) (MUD PLANT OPERATOR Depressants) DiazePAM (MUD PLANT OPERATOR Depressants) C Cholecalciferol (Vitamin D Analogs) Maalox [OTC] (Calcium Salts) C Vitamin E (Systemic) Xarelto (Anticoagulants) B Acetaminophen Lortab (Opioid Analgesics) B Albuterol (Beta2-Agonists) Fluticasone (Nasal) (Corticosteroids) B DiazePAM Maalox [OTC] (Antacids) Pneumococcal Vaccine HX Pneumo Vac ([id number]): Yes (11-10-2014) HX Pneumo Vac (Pneumovax): Yes (07-13-2011) Comments Regarding the Review No concerns at this time aside from keeping the use of diazepam and lortab at a minimum (as possible) due to his age and risk for falls/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 MD Notified?: No KIRAN MUNROE May 28, 2018 18:31
[2018-05-28] MEDS: guaiFENesin 600 MG TABCR PO SCH (20:28)
[2018-05-28] MEDS: MELATONIN 3 MG TAB PO SCH (20:28)
[2018-05-28] MEDS: DOCUSATE SODIUM 100 MG CAP PO SCH (20:28)
[2018-05-28] MEDS: MONTELUKAST SODIUM 10 MG TAB PO SCH (20:28)
[2018-05-28] MEDS: APAP/HYDROCODONE 325/5 TAB PO PRN (20:31)
[2018-05-29] MEDS: APAP/HYDROCODONE 325/5 TAB PO PRN ×2 (06:01→15:50)
[2018-05-29 08:00] VITALS: BP 108/69
[2018-05-29] MEDS: POLYETHYLENE GLYCOL 17 GM PKT PO SCH (08:55)
[2018-05-29] MEDS: CETIRIZINE HCL 10 MG TAB PO SCH (08:55)
[2018-05-29] MEDS: BETA-CAROTENE(A) & E/MIN TAB PO SCH (08:56)
[2018-05-29] MEDS: ASCORBIC ACID 500 MG TAB PO SCH (08:56)
[2018-05-29] MEDS: RIVAROXABAN 10 MG TAB PO SCH (08:57)
[2018-05-29] MEDS: CYANOCOBALAMIN 1000 MCG TAB PO SCH (08:57)
[2018-05-29] MEDS: MULTIVITAMINS TAB PO SCH (08:57)
[2018-05-29] MEDS: guaiFENesin 600 MG TABCR PO SCH ×2 (08:57→20:32)
[2018-05-29] MEDS: CHOLECALCIFEROL 1000 UNIT TAB PO SCH (08:57)
[2018-05-29] MEDS: DOCUSATE SODIUM 100 MG CAP PO SCH ×2 (08:57→20:32)
[2018-05-29] MEDS: GLUCOSAMINE-CHONDROITIN CAP PO SCH (08:57)
[2018-05-29] MEDS: VITAMIN E 400 INTLU CAP PO SCH (08:57)
--- NOTE | 2018-05-29 13:09 | Medical Nutrition Therapy ---
Nutrition Anthropometrics Height (Inches): 67.00 Height (Calculated Centimeters: 170.039806 Weight (Pounds): 231 Weight (Calculated Kilograms): 104.865 BMI: 36.2 Jase Nutrition Score: Adequate Jase Nutrition Risk Score: 17 Dietary Referral Nutrition Risk Factors: Nutrition Risk Comment: Physical Findings Physical Appearance: Obese BMI 30-39 Skin Appearance Skin Appearance: Edema Edema Location Modifier: Edema Location: Type of Edema: Degree of Edema: Gastrointestinal Symptoms GI Symtoms: Constipation Tube Present: Bowel Sounds: Recent Bowel Pattern: Constipated Stool Characteristics: Nutritional Diagnosis Nutritional Risk Acuity 4: Good Appetite Past Medical History: Hx of Afib, HTN, DENISHA, and intrinsic asthma. Nutritional Acuity: 4-Low Diet Type: Diet as Tolerated ERNESTINA/REG Nutrition Intervention: Cont diet as ordered, Encourage intake Nutrition Monitoring & Eval RD Patient Assessment Time: [address] Assessment Type: RD Assessment Patient Nutrition Acuity: 4-Low Follow Up Date: Jun 05, 2018 Nutritional Comment: 05/29. Admitted for therapy and strengthening after back surgery. Pt is on ERNESTINA, and has consumed 50-90% of regular sized meals. Pt is 67in, 231lbs, and has a obese class 2 BMI of 36.2. No updated labs available for pt. Encourage intake and monitor labs. ANNETTEHIEU May 29, 2018 08:26
[2018-05-29 15:30] VITALS: BP 121/75
[2018-05-29] MEDS: MELATONIN 3 MG TAB PO SCH (20:32)
[2018-05-29] MEDS: MONTELUKAST SODIUM 10 MG TAB PO SCH (20:32)
[2018-05-30 07:22] VITALS: BP 124/81
[2018-05-30] MEDS: APAP/HYDROCODONE 325/5 TAB PO PRN ×3 (07:41→23:38)
[2018-05-30] MEDS: GLUCOSAMINE-CHONDROITIN CAP PO SCH (09:17)
[2018-05-30] MEDS: POLYETHYLENE GLYCOL 17 GM PKT PO SCH (09:17)
[2018-05-30] MEDS: CHOLECALCIFEROL 1000 UNIT TAB PO SCH (09:18)
[2018-05-30] MEDS: CETIRIZINE HCL 10 MG TAB PO SCH (09:18)
[2018-05-30] MEDS: CYANOCOBALAMIN 1000 MCG TAB PO SCH (09:18)
[2018-05-30] MEDS: ASCORBIC ACID 500 MG TAB PO SCH (09:18)
[2018-05-30] MEDS: guaiFENesin 600 MG TABCR PO SCH ×2 (09:18→20:53)
[2018-05-30] MEDS: VITAMIN E 400 INTLU CAP PO SCH (09:18)
[2018-05-30] MEDS: BETA-CAROTENE(A) & E/MIN TAB PO SCH (09:18)
[2018-05-30] MEDS: DOCUSATE SODIUM 100 MG CAP PO SCH ×2 (09:18→20:53)
[2018-05-30] MEDS: MULTIVITAMINS TAB PO SCH (09:19)
[2018-05-30] MEDS: RIVAROXABAN 10 MG TAB PO SCH (09:19)
--- NOTE | 2018-05-30 14:33 | Hospitalist Progress Note ---
Subjective Progress Notes Subjective He has not been progressing well with ambulation. He reports he is only able to stand by the bed or get to the chair. He has complaints of increased muscle pain in the left upper thigh. Patient Complains of: Cardiovascular: No: Chest Pain Respiratory: No: Shortness of Breath Physical Exam Vital Signs Date Time Temp Pulse Resp B/P (MAP) Pulse Ox O2 Delivery O2 Flow Rate FiO2 05/30/18 12:37 97 Room Air 05/30/18 08:04 74 14 05/30/18 07:22 99.2 124/81 (95) 05/29/18 15:30 0.5 Intake and Output 05/30/18 06:59 Intake Total 800 ml Output Total 900 ml Balance -100 ml Intake Oral 800 ml Output Urine Total 900 ml # Voids 6 # Bowel Movements 1 General Appearance: Alert, Awake, No Acute Distress, Afebrile Neuro: No Gross deficits Cardiovascular: Regular Rate and Rhythm Respiratory: No Respiratory Distress, Other (expiratory wheezes) GI: Soft and Non-Tender Musculoskeletal: Other (lateral muscles to left thigh feel tight upon palpation) Extremities: Warm, Perfused; No Edema Psych: Alert & Oriented X3, Appropriate Mood & Affect Assessment and Plan Problems: (1) Spinal stenosis Status: Acute Assessment & Plan: Post laminectomy and fusion. Progressing very slowly. Reports significant pain and muscle tightness. Will try to achieve reasonable pain control with Lortab/low dose diazepam. (2) Atrial fibrillation Status: Chronic Assessment & Plan: He has been rate controlled without medication. He is now back on his usual Xarelto 20mg daily for CVA prophylaxis. (3) HTN (hypertension) Status: Chronic Assessment & Plan: His BPs have been in normal range without medications. Will monitor BPs and resume losartan only when needed. (4) Intrinsic asthma Status: Chronic Assessment & Plan: Continue Singulair and albuterol. He has also been using guaifenesin. He reports he also uses Advair HFA at home, will resume Advair inhaler. Continue prn albuterol nebulizers. (5) DENISHA (obstructive sleep apnea) Status: Chronic Assessment & Plan: Continue CPAP. DOLORES AMADORP May 30, 2018 14:33
[2018-05-30] MEDS: SALMETEROL/FLUTIC 250/50 1 INH INH SCH ×2 (17:02→20:25)
[2018-05-30 20:00] VITALS: BP 104/71
[2018-05-30] MEDS: DIAZEPAM 5 MG TAB PO PRN (20:53)
[2018-05-30] MEDS: MONTELUKAST SODIUM 10 MG TAB PO SCH (20:53)
[2018-05-30] MEDS: MELATONIN 3 MG TAB PO SCH (20:53)
[2018-05-31 07:45] VITALS: BP 92/44
[2018-05-31] MEDS: VITAMIN E 400 INTLU CAP PO SCH (08:53)
[2018-05-31] MEDS: CYANOCOBALAMIN 1000 MCG TAB PO SCH (08:53)
[2018-05-31] MEDS: CHOLECALCIFEROL 1000 UNIT TAB PO SCH (08:53)
[2018-05-31] MEDS: BETA-CAROTENE(A) & E/MIN TAB PO SCH (08:53)
[2018-05-31] MEDS: DOCUSATE SODIUM 100 MG CAP PO SCH ×2 (08:53→20:35)
[2018-05-31] MEDS: guaiFENesin 600 MG TABCR PO SCH ×2 (08:54→20:34)
[2018-05-31] MEDS: GLUCOSAMINE-CHONDROITIN CAP PO SCH (08:54)
[2018-05-31] MEDS: MULTIVITAMINS TAB PO SCH (08:54)
[2018-05-31] MEDS: CETIRIZINE HCL 10 MG TAB PO SCH (08:54)
[2018-05-31] MEDS: POLYETHYLENE GLYCOL 17 GM PKT PO SCH (08:54)
[2018-05-31] MEDS: RIVAROXABAN 10 MG TAB PO SCH (08:54)
[2018-05-31] MEDS: ASCORBIC ACID 500 MG TAB PO SCH (08:54)
[2018-05-31] MEDS: APAP/HYDROCODONE 325/5 TAB PO PRN ×2 (10:21→16:37)
[2018-05-31 10:39] VITALS: BP 111/66
[2018-05-31 16:40] VITALS: BP 103/71
[2018-05-31] MEDS: SALMETEROL/FLUTIC 250/50 1 INH INH SCH ×2 (18:00→20:49)
[2018-05-31] MEDS: MELATONIN 3 MG TAB PO SCH (20:34)
[2018-05-31] MEDS: MONTELUKAST SODIUM 10 MG TAB PO SCH (20:34)
[2018-05-31] MEDS: DIAZEPAM 5 MG TAB PO PRN (20:35)
[2018-06-01] MEDS: SALMETEROL/FLUTIC 250/50 1 INH INH SCH ×2 (05:40→18:00)
[2018-06-01] MEDS: APAP/HYDROCODONE 325/5 TAB PO PRN ×2 (07:39→13:47)
[2018-06-01 07:43] VITALS: BP 132/72
[2018-06-01] MEDS: ALBUTEROL 8 GM INHALER INH PRN (08:08)
[2018-06-01] MEDS: MULTIVITAMINS TAB PO SCH (08:38)
[2018-06-01] MEDS: CETIRIZINE HCL 10 MG TAB PO SCH (08:38)
[2018-06-01] MEDS: GLUCOSAMINE-CHONDROITIN CAP PO SCH (08:38)
[2018-06-01] MEDS: VITAMIN E 400 INTLU CAP PO SCH (08:38)
[2018-06-01] MEDS: ASCORBIC ACID 500 MG TAB PO SCH (08:38)
[2018-06-01] MEDS: CHOLECALCIFEROL 1000 UNIT TAB PO SCH (08:39)
[2018-06-01] MEDS: RIVAROXABAN 10 MG TAB PO SCH (08:39)
[2018-06-01] MEDS: guaiFENesin 600 MG TABCR PO SCH ×2 (08:39→20:28)
[2018-06-01] MEDS: BETA-CAROTENE(A) & E/MIN TAB PO SCH (08:39)
[2018-06-01] MEDS: DOCUSATE SODIUM 100 MG CAP PO SCH ×2 (08:39→19:28)
[2018-06-01] MEDS: POLYETHYLENE GLYCOL 17 GM PKT PO SCH (08:39)
[2018-06-01] MEDS: CYANOCOBALAMIN 1000 MCG TAB PO SCH (08:39)
[2018-06-01 17:17] VITALS: BP 140/65
[2018-06-01] MEDS: MELATONIN 3 MG TAB PO SCH (20:28)
[2018-06-01] MEDS: MONTELUKAST SODIUM 10 MG TAB PO SCH (20:28)
[2018-06-02] MEDS: SALMETEROL/FLUTIC 250/50 1 INH INH SCH ×2 (05:31→18:01)
[2018-06-02 08:14] VITALS: BP 109/70
[2018-06-02] MEDS: POLYETHYLENE GLYCOL 17 GM PKT PO SCH (09:00)
[2018-06-02] MEDS: DOCUSATE SODIUM 100 MG CAP PO SCH ×2 (09:00→20:49)
[2018-06-02] MEDS: RIVAROXABAN 10 MG TAB PO SCH (09:20)
[2018-06-02] MEDS: VITAMIN E 400 INTLU CAP PO SCH (09:20)
[2018-06-02] MEDS: guaiFENesin 600 MG TABCR PO SCH ×2 (09:20→20:47)
[2018-06-02] MEDS: CHOLECALCIFEROL 1000 UNIT TAB PO SCH (09:20)
[2018-06-02] MEDS: BETA-CAROTENE(A) & E/MIN TAB PO SCH (09:21)
[2018-06-02] MEDS: MULTIVITAMINS TAB PO SCH (09:21)
[2018-06-02] MEDS: CYANOCOBALAMIN 1000 MCG TAB PO SCH (09:21)
[2018-06-02] MEDS: APAP/HYDROCODONE 325/5 TAB PO PRN ×2 (09:21→15:24)
[2018-06-02] MEDS: CETIRIZINE HCL 10 MG TAB PO SCH (09:22)
[2018-06-02] MEDS: GLUCOSAMINE-CHONDROITIN CAP PO SCH (09:22)
[2018-06-02] MEDS: ASCORBIC ACID 500 MG TAB PO SCH (09:22)
[2018-06-02 15:20] VITALS: BP 126/78
[2018-06-02] MEDS: SIMETHICONE 80 MG CHEW CHEW PRN (19:28)
[2018-06-02] MEDS: MELATONIN 3 MG TAB PO SCH (20:47)
[2018-06-02] MEDS: DIAZEPAM 5 MG TAB PO PRN (20:48)
[2018-06-02] MEDS: MONTELUKAST SODIUM 10 MG TAB PO SCH (20:48)
[2018-06-03] MEDS: SALMETEROL/FLUTIC 250/50 1 INH INH SCH ×2 (05:27→13:14)
[2018-06-03 07:20] VITALS: BP 133/71
[2018-06-03] MEDS: DOCUSATE SODIUM 100 MG CAP PO SCH ×2 (09:00→21:00)
[2018-06-03] MEDS: POLYETHYLENE GLYCOL 17 GM PKT PO SCH (09:00)
[2018-06-03] MEDS: VITAMIN E 400 INTLU CAP PO SCH (09:11)
[2018-06-03] MEDS: guaiFENesin 600 MG TABCR PO SCH ×2 (09:11→21:06)
[2018-06-03] MEDS: RIVAROXABAN 10 MG TAB PO SCH (09:11)
[2018-06-03] MEDS: CETIRIZINE HCL 10 MG TAB PO SCH (09:12)
[2018-06-03] MEDS: CYANOCOBALAMIN 1000 MCG TAB PO SCH (09:12)
[2018-06-03] MEDS: GLUCOSAMINE-CHONDROITIN CAP PO SCH (09:12)
[2018-06-03] MEDS: MULTIVITAMINS TAB PO SCH (09:12)
[2018-06-03] MEDS: CHOLECALCIFEROL 1000 UNIT TAB PO SCH (09:12)
[2018-06-03] MEDS: BETA-CAROTENE(A) & E/MIN TAB PO SCH (09:12)
[2018-06-03] MEDS: ASCORBIC ACID 500 MG TAB PO SCH (09:13)
[2018-06-03 16:45] VITALS: BP 138/81
[2018-06-03] MEDS: MONTELUKAST SODIUM 10 MG TAB PO SCH (21:06)
[2018-06-03] MEDS: MELATONIN 3 MG TAB PO SCH (21:06)
[2018-06-03] MEDS: DIAZEPAM 5 MG TAB PO PRN (21:06)
[2018-06-03] MEDS: SIMETHICONE 80 MG CHEW CHEW PRN (21:06)
[2018-06-04] MEDS: SALMETEROL/FLUTIC 250/50 1 INH INH SCH ×2 (05:22→16:09)
[2018-06-04 07:20] VITALS: BP 129/71
[2018-06-04] MEDS: POLYETHYLENE GLYCOL 17 GM PKT PO SCH (09:00)
[2018-06-04] MEDS: DOCUSATE SODIUM 100 MG CAP PO SCH ×2 (09:00→21:00)
[2018-06-04] MEDS: BETA-CAROTENE(A) & E/MIN TAB PO SCH (09:08)
[2018-06-04] MEDS: guaiFENesin 600 MG TABCR PO SCH ×2 (09:08→21:22)
[2018-06-04] MEDS: CHOLECALCIFEROL 1000 UNIT TAB PO SCH (09:08)
[2018-06-04] MEDS: MULTIVITAMINS TAB PO SCH (09:08)
[2018-06-04] MEDS: VITAMIN E 400 INTLU CAP PO SCH (09:08)
[2018-06-04] MEDS: CYANOCOBALAMIN 1000 MCG TAB PO SCH (09:08)
[2018-06-04] MEDS: ASCORBIC ACID 500 MG TAB PO SCH (09:09)
[2018-06-04] MEDS: RIVAROXABAN 10 MG TAB PO SCH (09:09)
[2018-06-04] MEDS: GLUCOSAMINE-CHONDROITIN CAP PO SCH (09:09)
[2018-06-04] MEDS: CETIRIZINE HCL 10 MG TAB PO SCH (09:09)
[2018-06-04] MEDS: APAP/HYDROCODONE 325/5 TAB PO PRN (10:56)
--- NOTE | 2018-06-04 13:22 | Medical Nutrition Therapy ---
Nutrition Anthropometrics Height (Inches): 67.00 Height (Calculated Centimeters: 170.402974 Weight (Pounds): 231 Weight (Calculated Kilograms): 104.865 BMI: 36.2 Jase Nutrition Score: Adequate Jase Nutrition Risk Score: 15 Dietary Referral Nutrition Risk Factors: Nutrition Risk Comment: Physical Findings Physical Appearance: Obese BMI 30-39 Skin Appearance Skin Appearance: Edema Edema Location Modifier: Both Edema Location: Leg Type of Edema: Degree of Edema: Gastrointestinal Symptoms GI Symtoms: Change in Bowel Pattern Tube Present: Bowel Sounds: Recent Bowel Pattern: Constipated Stool Characteristics: Nutritional Diagnosis Nutritional Risk Acuity 4: Good Appetite Past Medical History: Hx of Afib, HTN, DENISHA, and intrinsic asthma. Nutritional Acuity: 4-Low Diet Type: Diet as Tolerated ERNESTINA/REG Nutrition Intervention: Cont diet as ordered, Encourage intake Nutrition Monitoring & Eval RD Patient Assessment Time: [address] Assessment Type: RD Re-Assessment Patient Nutrition Acuity: 4-Low Follow Up Date: Jun 12, 2018 Nutritional Comment: 05/29. Admitted for therapy and strengthening after back surgery. Pt is on ERNESTINA, and has consumed 50-90% of regular sized meals. Pt is 67in, 231lbs, and has a obese class 2 BMI of 36.2. No updated labs available for pt. Encourage intake and monitor labs. MR /10. Pt very weak and progressing very slowly. Cont on ERNESTINA, consuming 75-100% of regular sized meals. Generally pt refuses an afternoon snack. No new labs available. No weight gain or loss. Will cont to monitor pt and encourage intake. ANNETTEHIEU Jun 04, 2018 08:08
[2018-06-04 15:10] VITALS: BP 117/77
[2018-06-04] MEDS: ALBUTEROL 8 GM INHALER INH PRN (16:09)
[2018-06-04] MEDS: MELATONIN 3 MG TAB PO SCH (21:22)
[2018-06-04] MEDS: SIMETHICONE 80 MG CHEW CHEW PRN (21:22)
[2018-06-04] MEDS: DIAZEPAM 5 MG TAB PO PRN (21:22)
[2018-06-04] MEDS: MONTELUKAST SODIUM 10 MG TAB PO SCH (21:22)
[2018-06-05 08:00] VITALS: BP 123/76
[2018-06-05] MEDS: DOCUSATE SODIUM 100 MG CAP PO SCH ×2 (08:46→21:00)
[2018-06-05] MEDS: guaiFENesin 600 MG TABCR PO SCH ×2 (08:47→20:43)
[2018-06-05] MEDS: POLYETHYLENE GLYCOL 17 GM PKT PO SCH (08:47)
[2018-06-05] MEDS: MULTIVITAMINS TAB PO SCH (08:48)
[2018-06-05] MEDS: BETA-CAROTENE(A) & E/MIN TAB PO SCH (08:48)
[2018-06-05] MEDS: VITAMIN E 400 INTLU CAP PO SCH (08:49)
[2018-06-05] MEDS: CYANOCOBALAMIN 1000 MCG TAB PO SCH (08:49)
[2018-06-05] MEDS: ASCORBIC ACID 500 MG TAB PO SCH (08:50)
[2018-06-05] MEDS: CHOLECALCIFEROL 1000 UNIT TAB PO SCH (08:50)
[2018-06-05] MEDS: GLUCOSAMINE-CHONDROITIN CAP PO SCH (08:51)
[2018-06-05] MEDS: CETIRIZINE HCL 10 MG TAB PO SCH (08:51)
[2018-06-05] MEDS: RIVAROXABAN 10 MG TAB PO SCH (08:51)
[2018-06-05] MEDS: ALBUTEROL 8 GM INHALER INH PRN (10:40)
[2018-06-05] MEDS: SIMETHICONE 80 MG CHEW CHEW PRN (15:46)
[2018-06-05 15:50] VITALS: BP 110/75
[2018-06-05] MEDS: MELATONIN 3 MG TAB PO SCH (20:43)
[2018-06-05] MEDS: MONTELUKAST SODIUM 10 MG TAB PO SCH (20:43)
[2018-06-06 06:32] LABS: PLATELET COUNT, AUTOMATED 417 K/uL (150-450)
[2018-06-06 08:00] VITALS: BP 107/59
[2018-06-06] MEDS: DOCUSATE SODIUM 100 MG CAP PO SCH (08:58)
[2018-06-06] MEDS: BETA-CAROTENE(A) & E/MIN TAB PO SCH (08:58)
[2018-06-06] MEDS: GLUCOSAMINE-CHONDROITIN CAP PO SCH (08:58)
[2018-06-06] MEDS: CHOLECALCIFEROL 1000 UNIT TAB PO SCH (08:58)
[2018-06-06] MEDS: RIVAROXABAN 10 MG TAB PO SCH (08:58)
[2018-06-06] MEDS: CYANOCOBALAMIN 1000 MCG TAB PO SCH (08:59)
[2018-06-06] MEDS: guaiFENesin 600 MG TABCR PO SCH (08:59)
[2018-06-06] MEDS: MULTIVITAMINS TAB PO SCH (08:59)
[2018-06-06] MEDS: ASCORBIC ACID 500 MG TAB PO SCH (08:59)
[2018-06-06] MEDS: VITAMIN E 400 INTLU CAP PO SCH (08:59)
[2018-06-06] MEDS: CETIRIZINE HCL 10 MG TAB PO SCH (08:59)
[2018-06-06] MEDS: POLYETHYLENE GLYCOL 17 GM PKT PO SCH (09:00)
[2018-06-06] MEDS ORDERED: CALC250T7 PO (13:44)
[2018-06-06] MEDS ORDERED: TRIA10.8 NS (13:44)
[2018-06-06] MEDS ORDERED: CYAN100071 SL (13:44)
[2018-06-06] MEDS ORDERED: LOR5/325 PO (13:47)
[2018-06-06] MEDS ORDERED: DIA5 PO (13:47)
--- NOTE | 2018-06-06 13:53 | Hospitalist Progress Note ---
Subjective Progress Notes Subjective The patient states his back hurts occasionally but the muscle spasm has improved and he is able to get around. He feels comfortable going home. Physical Exam Vital Signs Date Time Temp Pulse Resp B/P (MAP) Pulse Ox O2 Delivery O2 Flow Rate FiO2 06/06/18 11:30 92 Room Air 06/06/18 08:00 98.1 60 16 107/59 (75) Intake and Output 06/06/18 06:59 Intake Total 1245 ml Output Total 700 ml Balance 545 ml Intake Oral 1245 ml Output Urine Total 700 ml # Voids 2 # Bowel Movements 2 General Appearance: Alert, Awake, No Acute Distress Neuro: No Gross deficits Eyes: PERRLA Cardiovascular: Regular Rate and Rhythm Respiratory: Clear to Auscultation GI: Soft and Non-Tender Extremities: Warm, Perfused, Other (No edema.) Psych: Appropriate Mood & Affect Result Diagram: 06/06/1862406/06/18624 Assessment and Plan Problems: (1) Spinal stenosis Status: Acute Assessment & Plan: Post laminectomy and fusion. Progressing well now. Reports some pain but muscle tightness is markedly improved. Will DC today. Will send with a weeks worth of Lortab and Valium. (2) Atrial fibrillation Status: Chronic Assessment & Plan: He has been rate controlled without medication. He is now back on his usual Xarelto 20mg daily for CVA prophylaxis. (3) HTN (hypertension) Status: Chronic Assessment & Plan: His BPs have been in normal range without medications. The patient will monitor his BP at home and restart medication if his systolic BP is over 140. (4) Intrinsic asthma Status: Chronic Assessment & Plan: Continue Singulair, Advair HFA and albuterol. He has also been using guaifenesin. (5) DENISHA (obstructive sleep apnea) Status: Chronic Assessment & Plan: Continue CPAP. Time Spent on Plan of Care: < 30 min ZAKIYA MARTINI MD Jun 06, 2018 13:53
--- NOTE | 2018-06-06 15:53 | OT ECF NOTE ---
Type of Note: Discharge Note Primary Medical Diagnosis: Generalized weakness s/p L3-L5 laminectomy with L3-L5 PLIF. Lumbar precautions, LSO donned as tolerated with ambulation Occupational Therapy Evaluation Date: 05/28/18 SUBJECTIVE: Prior Hospitalization: [facility] 05/23/18 thru 05/28/18. DOS: 05/23/[address] Price Prior Level of Function: Modified Independent with 4WW. Assist from spouse for IADLs. Spouse reports pt ambulated short household distances prior to sx. Prior Living Status: Single level house Spouse Assist by family Community Services: No known needs Home Accessibility: Stairs with rails All needs on one level Tub/shower combination Equipment Owned: Front wheeled walker Rollator Extended tub bench Medical Complications/Past Medical History: Please refer to EMR Psychosocial Support: Supportive spouse Pain Scale (0-10): 10.5/10. Emotional support, positioning, and ice offered. OBJECTIVE: Strength: MMT: Right Left Shoulder Flexion WFL WFL Elbow Flexion WFL WFL Wrist Extension WFL WFL Field Broomer WFL WFL (5= normal, 4= good, 3= fair, 2= poor, 1= trace) ROM: Both upper extremities, WFL Sensation: Intact, no concerns Functional Transfer: Assistive Device: Mod (I) with 4WW ADL: Upper body dressing: Assistive device: Upper body dressing ability: Min A from spouse to don/doff LSO. Family education provided. Lower body dressing: Assistive device: Sock aid/earth science faculty member Lower body dressing ability: Modified Independent Toileting: Assistive device: Raised toilet seat, Grab rails Toileting ability: Modified Independent Grooming/hygiene: Assistive device: Standing Grooming ability: Modified Independent Bathing: Assistive device: SBA Bathing ability: Modified Independent Standardized Assessment: Cassi Index of Activities of Daily Livin/20 upon initial evaluation (05/28/18). 20/20 upon discharge (06/06/18)/. ASSESSMENT: "[place]" presented to [facility] requiring 2 person assist for sit<>stands with RW and Max Ax1 for mobility with EZ lift. He is currently Mod (I) for ADLs with exception of managing LSO brace. He has met all skilled OT goals and desires to discharge home at current level of function with services. Problem List/Current Limitations: Pain Decreased activity tolerance Decreased strength Decreased ROM Generalized weakness Poor safety awareness Decreased initiation Short Term Goals: 1) Pt will be Mod (I) toilet task. GOAL MET 2) Pt will be Mod (I) UB/LB dressing. GOAL MET 3) Pt will be Mod (I) grooming/hygiene. GOAL MET 4) Pt will be Min A shower task. GOAL MET 5) Pt Cassi Index of ADLs score will improve by 2 points.GOAL MET Materials Clerk Goals: Return home with assist from spouse for IADLs and possible HH service s Patient Goals: Return home with HH services and assist from spouse Rehabilitation Prognosis: Fair Barriers to Discharge: Pain, Motivation, Decreased mobility at PLOF PLAN: Return home with HH services and assist from spouse Thank you for this referral. If you have any questions, concerns, or comments about this report or plan, please contact me at . Taryn Myers MS, OTR/L Occupational Therapist [place]ILLIE
--- NOTE | 2018-06-06 16:13 | PT ECF NOTE ---
Type of Note: Discharge Summary Primary Medical Diagnosis: S/P L3-L5 laminectomy with L-L5 posterior lateral instrumented fusion (05/23/18) Physical Therapy Discharge Date: 06/06/18 SUBJECTIVE: Prior Hospitalization: [facility] 05/23/18-05/28/18 Prior Level of Function: Perla with use of RW (pt's spouse reports that he was ambulating short household distances at PLOF) Prior Living Status: Single level house, Spouse Community Services: Support adequate Home Accessibility: 3 stairs with rails, All needs on one level Equipment Owned: Front wheeled walker, Rollator Medical Complications/Past Medical History: See EMR for details Psychosocial Support: supportive OBJECTIVE: Strength: Right Lower Extremity: DF: <3/5 Knee flexion: 4/5 Knee extension:3+/5 Hip flexion: <3/5 Left Lower Extremity: DF: 4/5 Knee flexion: 4/5 Knee extension: 4/5 Hip flexion: <3/5 ROM: Lacking full AROM of R) DF Sensation: WNL Other Neuro findings: None noted Bed Mobility: Alisha Transfers: SBA with 4WW Gait: SBA x 210 with 4WW Stairs: 4 stairs with railing and CGA ASSESSMENT: Pt did not achieve all PT goals but elected to d/c home with assistance from spouse and [facility] services prior to meeting PT goals. Pt is demonstrating improved tolerance to functional mobility as well as increased independence, with spouse able to provide Alisha for baljinder/doffing LSO. Pt will d/c with [facility] services in placed. Problem List/Current Limitations: Pain Decreased activity edvin Decreased strength Decreased ROM Decreased balance Decreased problem solving Decreased initiation Short Term Goals: 1: Pt to complete STS transfers with Perla and least restrictive AD (not met) 2: Pt to ambulate 50' with Perla and least restrictive AD (not met) 3: Pt to complete bed mobility with log roll technique and Perla (not met) 4: Pt to demonstrate ability to baljindre/doff LSO with Alisha from spouse. (met) Senior Living Goals: Pt to d/c home with decreased need of assistance from others Patient Goals: Discharge home with spouse PLAN: The patient will discharge home with assistance from spouse and HHC services. Thank you for this referral. If you have any questions, concerns, or comments about this report or plan, please contact me at . Ju De Guzman, PT, DPT MTDD
[2018-06-26] MEDS ORDERED: DICL100G39 TOP (14:49)
--- NOTE | 2018-07-05 19:34 | DISCHARGE SUMMARY ---
DATE OF ADMISSION: May 28, 2018 DATE OF DISCHARGE: June 06, 2018 ADMISSION DIAGNOSIS Weakness status post laminectomy and fusion L3 to L5. SUMMARY OF CARE Mr. Price is a 78-year-old gentleman who underwent laminectomy and fusion in the lumbar spine and postoperatively needed more time for recovery secondary to postoperative weakness and difficulty with mobilization. He was, therefore, admitted to the extended care facility for further acute rehabilitation. He did well through the course of his stay and was ultimately discharged home on the 06 of June in good condition. MILLIE
== END 2018-06-06 14:45 | disposition home health service (06) | DRG 950 ==
LOC: ECF 11:10
PROVIDERS: ADMIT Orthopaedic Surgery; ATTEND Orthopaedic Surgery
PROC: 5A09357 Assistance with Respiratory Ventilation, Less than 24 Consecutive Hours, Continuous Positive Airway Pressure (ICD-10-PCS; principal; 2018-05-28)
DX: Z48.811 Encounter for surgical aftercare following surgery on the nervous system (principal); I48.2 Chronic atrial fibrillation; I10 Essential (primary) hypertension; G47.33 Obstructive sleep apnea (adult) (pediatric); M62.830 Muscle spasm of back; J45.909 Unspecified asthma, uncomplicated; Z90.49 Acquired absence of other specified parts of digestive tract; Z79.01 Long term (current) use of anticoagulants; Z99.81 Dependence on supplemental oxygen
CPT/HCPCS: 36415; 82310; 82374; 82435; 82565; 82947; 84132; 84295; 84520; 85025; 97161; 97166; J3535

== ENCOUNTER 2018-08-01 22:18 | Emergency (ER) | payer MEDICARE, BC ==
[2018-05-24 12:00] VITALS: Wt 102.1 kg
[~2018-08-01 22:18] MED LIST changes: +CALC250T7 PO; +CYAN100071 SL; +DIA5 PO; +DICL100G39 TOP; +LOR5/325 PO; +TRIA10.8 NS
[2018-08-01 22:21] VITALS: BP 121/83
--- NOTE | 2018-08-01 22:39 | ER Report ---
History and Physical Time Seen By MD: 22:39 Hx. of Stated Complaint: FELL, HIT FACE ON COUNTER, SPLIT LOWER LIP OPEN HPI/ROS CHIEF COMPLAINT: Fall, lip laceration HISTORY OF PRESENT ILLNESS: 78-year-old male on Xarelto fell striking his face. Patient denies neck pain, or LOC. Patient denies any other injuries. He denies headache, nausea or vomiting. Patient thinks his tetanus status is up-to-date. There is a tiny laceration to the right lower lip through the vermilion border. Patient denies syncope. He fell into his kitchen counter, sustaining a la ceration to his lip. REVIEW OF SYSTEMS: Respiratory: No cough, no dyspnea. Cardiovascular: No chest pain, no palpitations. Gastrointestinal: No vomiting, no abdominal pain. Musculoskeletal: No back pain. Allergies: Coded Allergies: morphine (Unverified Allergy, Intermediate, TURNS RED, 08/01/18) "felt like run over by truck" Uncoded Allergies: HAYFEVER (Allergy, Unknown, 02/18/14) Home Meds Active Scripts Diclofenac Sodium 1% Gel (VOLTAREN 1% GEL) 100 Gm Gel..gram., 2 GM TOP BID for 30 Days, #1 TUBE Prov:MIK FLORES MD 06/26/18 Rivaroxaban 20 Mg (XARELTO 20 MG) 20 Mg Tablet, 1 TAB PO DAILY, #30 TAB 0 Refills Prov:WU PARADA MD 06/25/15 Reported Medications Triamcinolone Acetonide (Nasacort) 10.8 Ml [place], 2 SPRAYS NS DAILY PRN for ALLERGY SYMPTOMS 06/06/18 Calcium Citrate (CALCIUM CITRATE) 250 Mg Tablet, 250 MG PO DAILY 06/06/18 Cyanocobalamin (Vitamin B-12) (VITAMIN B-12) 1,000 Mcg Tab.subl, 1000 MCG SL DAILY 06/06/18 Losartan Potassium (LOSARTAN POTASSIUM) 50 Mg Tablet, 1 TAB PO DAILY 05/23/18 Melatonin (MELATONIN) 5 Mg Tablet, 10 MG PO HS 05/23/18 Fluticasone/Salmeterol (ADVAIR HFA 115-21 MCG INHALER) 12 Gm Hfa.aer.ad, 2 PUFF IH HS 05/17/18 Cetirizine Hcl (CETIRIZINE HCL) 10 Mg Tablet, 10 MG PO QDAY, TAB 03/07/18 Vit C/E/Zn/Coppr/Lutein/Zeaxan (Preservision Areds 2 Softgel) 1 Each Capsule, 1 CAP BID 03/07/18 Cholecalciferol (Vitamin D3) (VITAMIN D3) 2,000 Unit Capsule, 1 CAP PO DAILY, CAPSULE 11/06/17 Vitamin E Acetate (VITAMIN E) 1,000 Unit Capsule, 1 CAP PO DAILY, CAPSULE 10/30/17 Lutein (LUTEIN) 20 Mg Capsule, 1 CAP PO DAILY, CAPSULE 10/30/17 Gluc 2KCL/Chondr/Mary Hy/Hy Ac (GLUCOSAMINE & CHONDROITIN CAP) 1 Each Capsule, 1 CAP PO DAILY, CAPSULE 10/30/17 Multivit-Min/FA/Lycopen/Lutein (Centrum Silver Men Tablet) 300 Mcg-600 Mcg-300 Mcg Tablet, 1 TAB PO DAILY pt states this is chewable form 10/30/17 Fluticasone Prop 50 Mcg Ns (FLONASE 50 MCG NS) 16 Gm [place]ay.susp, 2 SPRAYS NS PRN, BOT 10/30/17 Albuterol Sulfate (VENTOLIN HFA) 18 Gm Inh, 1-2 PUFF INH QID PRN for 30 Days, INH 05/01/14 Montelukast Sodium (SINGULAIR) 10 Mg Tablet, 1 TAB PO HS 02/18/14 Ascorbate Calcium (Vitamin C) 500 Mg Tablet, 1 TAB PO DAILY 11/12/12 Past Medical/Surgical History Past Medical History Reviewed: Yes HEENT: Reports hx of: allergic rhinitis (Comes & goes, never allergies shots) Cardiovascular: Reports hx of: atrial fibrillation (Spring 2013, nuclear stress test small area of inferior reversible ischemia) hypertension (Tx since 70's, recent low potassium, spirono started 03/08) Respiratory: Reports hx of: asthma (Started in his 50's. No hospitalizations, Peak flow 400 03/08) pneumonia (Never hospitalized) sleep apnea (Dx about 2003 and uses bipap, works well, no O2 needed) Gastrointestinal: Reports hx of: GERD (before gastric bypass. ) GI bleed (03/07. Had EGD and colonoscopy. ) Musculoskeletal: Reports hx of: gout (in knee then left big toe. was on allopurinol for years. 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 Annual in 03/08. ) 07/03/2017 periprosthetic supracondylar Femus fracture with locking plate and screws Gastrointestinal: Reports hx of: cholecystectomy (done at time of gastric bypass. ) gastric bypass (2004 in [place]. lost 90#) other GI surgery (hemorrhoid surgery x 2, Upper and lower GI scope 2013) Genitourinary: Reports hx of: vasectomy (1970s) Musculoskeletal: Reports hx of: arthroscopy (Right knee 1989) carpal tunnel release (left carpal tunnel about 1999. ) fracture repair (Periprostheric Supracondylar femur fracture 2016) spinal surgery (2017) total joint replacement (TRK 2000, TLK 2006, Right shoulder Hemiarthroplasty 2001,Right reverse total shoulder 2014) 07/03/2017 periprosthetic supracondylar Femus fracture with locking plate and screws Reviewed Nurses Notes: Yes Old Medical Records Reviewed: Yes Hx Smoking: Yes Smoking Status: Former Smoker Hx Substance Use Disorder: No Constitutional Vital Sign - Last 24 Hours 08/01/18 22:21 Temp 98.1 Pulse 78 Resp 18 B/P (MAP) 121/83 Pulse Ox 93 O2 Delivery Room Air Physical Exam General Appearance: The patient is alert, has no immediate need for airway protection and no current signs of toxicity. Vital signs stable, afebrile, pulse ox normal, alert and oriented 3. Palpation of the head and neck reveal no tenderness or trauma. There is a 1 cm lip laceration noted on the right lower lip HEENT: Pupils equal and round no injection. Respiratory: Chest is non tender, lungs are clear to auscultation. No chest wall tenderness Cardiac: regular rate and rhythm, no murmur Gastrointestinal: Abdomen is soft and non tender, no masses, bowel sounds normal. Musculoskeletal: Neck: Neck is supple and non tender. No tenderness on aggressive palpation of the midline Extremities have full range of motion and are non tender. No evidence of trauma Skin: No rashes or lesions. Neuro: Alert and oriented 3, cranial nerves II through XII intact motor 5/5 all groups, sensory intact to light touch 4, cerebellum grossly intact DIFFERENTIAL DIAGNOSIS: After history and physical exam differential diagnosis was considered for head injury including but not limited to concussion, skull fracture, intraparenchymal contusion, subarachnoid, subdural and epidural hematoma. Additionally,fall in the elderly including but not limited to intracranial injury, long bone and pelvic bone fracture, spinal injury, and intrathoracic injury. Medical Decision Making EKG/Imaging Imaging Results: CT scan of the head and C-spine without contrast was obtained. The results of the study are patient refused to have studies performed. He was asked to sign an against medical advice form. He is on blood thinners and fell striking his face. I think a CT scan is warranted since he is on Xarelto. The study was read by the radiologist. I viewed the images myself on the PACS system. ED Course/Re-evaluation ED Course Patient was admitted to an examination room. H&P was done. The differential diagnoses was considered. On clinical examination. Patient has a lip laceration. He did fall. He is on Xarelto. He has no headache symptoms. He has no neck pain. A CT scan of the head was recommended since he is on Xarelto since she had a cold bleeding. Patient refused head and neck CT. He was asked to sign any against medical advice form. His lip laceration was repaired as noted below. Advised a low threshold to return for any worsening, wound care was discussed. Suture removal to be in 5 days Procedure: Laceration repair. Verbal consent was obtained from the patient. The 1.0 cm laceration on the right lower lip through the vermilion border was anesthetized in the usual fashion. The wound was scrubbed, draped and explored to its base with a gloved finger. There were no deep structures involved. The wound was repaired with ibuprofen 3 sutures. The wound repair was simple. The procedure was performed by myself. Decision to Disposition Date: Aug 01, 2018 Decision to Disposition Time: 23:42 Depart Departure Latest Vital Signs Vital Signs Date Time Temp Pulse Resp B/P (MAP) Pulse Ox O2 Delivery O2 Flow Rate FiO2 08/01/18 22:21 98.1 78 18 121/83 93 Room Air Impression: Primary Impression: Fall Additional Impressions: Lip laceration Head injury Contusion of right shoulder Condition: Improved Disposition: HOME OR SELF-CARE Referrals: MIK FLORES MD (PCP) Patient Instructions: Contusion in Adults (ED), Facial Laceration (ED), Head Injury (ED) Additional Instructions: Return to the ER for any worsening, especially headache or mental status changes Perform daily wound care, gently cleanse the area with peroxide and water mixed 50-50 with gauze or Q-tips. Apply a thin layer antibiotic ointment Have your stitches removed in 5 days follow up with your primary care Problem Qualifiers Primary Impression: Fall Encounter type: initial encounter Qualified Codes: W19.XXXA - Unspecified fall, initial encounter Additional Impressions: Lip laceration Encounter type: initial encounter Qualified Codes: S01.511A - Laceration without foreign body of lip, initial encounter Head injury Encounter type: initial encounter Qualified Codes: S09.90XA - Unspecified injury of head, initial encounter Contusion of right shoulder Encounter type: initial encounter Qualified Codes: S40.011A - Contusion of right shoulder, initial encounter LUDY ROMERO DO Aug 01, 2018 22:39
[2018-08-09] MEDS ORDERED: MONT10TA PO (16:22)
== END 2018-08-01 23:55 | disposition home or self-care (01) ==
LOC: ER 22:42
DX: S01.511A Laceration without foreign body of lip, initial encounter (principal); S09.90XA Unspecified injury of head, initial encounter; S40.011A Contusion of right shoulder, initial encounter; W01.198A Fall on same level from slipping, tripping and stumbling with subsequent striking against other object, initial encounter; Y92.000 Kitchen of unspecified non-institutional (private) residence as the place of occurrence of the external cause
CPT/HCPCS: 99283

== ENCOUNTER 2018-08-12 23:16 | Inpatient (IN) | payer MEDICARE, BC ==
[2018-05-24 12:00] VITALS: Ht 170.2 cm; Wt 105.7 kg
[~2018-08-12] VITALS: Ht 170.2 cm; Wt 105.7 kg
--- NOTE | 2018-08-12 23:28 | ER Report ---
History and Physical Time Seen By MD: 23:28 HPI/ROS CHIEF COMPLAINT: Upper quadrant abdominal pain HISTORY OF PRESENT ILLNESS: 78-year-old male presents ambulatory to the ER complaining of left upper quadrant abdominal pain for one hour. He notes some mild nausea. He describes 8/10 pain without radiation. He notes no exacerbating or alleviating factors. He's had no fever, no chills. He's had no vomiting or diarrhea. He is status post gastric bypass. He notes no dysuria or hematuria. He notes no trouble with his urine. Patient has a history of atrial fibrillation and takes Xarelto. REVIEW OF SYSTEMS: Respiratory: No cough, no dyspnea. Cardiovascular: No chest pain, no palpitations. Gastrointestinal: As above Musculoskeletal: No back pain. Allergies: Coded Allergies: morphine (Unverified Allergy, Intermediate, TURNS RED, 08/12/18) "felt like run over by truck" Uncoded Allergies: HAYFEVER (Allergy, Unknown, 02/18/14) Home Meds Active Scripts Montelukast Sodium (SINGULAIR) 10 Mg Tablet, 1 TAB PO HS for 90 Days, #90 TAB 4 Refills Prov:MIK FLORES MD 08/09/18 Diclofenac Sodium 1% Gel (VOLTAREN 1% GEL) 100 Gm Gel..gram., 2 GM TOP BID for 30 Days, #1 TUBE Prov:MIK FLORES MD 06/26/18 Rivaroxaban 20 Mg (XARELTO 20 MG) 20 Mg Tablet, 1 TAB PO DAILY, #30 TAB 0 Refills Prov:WU PARADA MD 06/25/15 Reported Medications Triamcinolone Acetonide (Nasacort) 10.8 Ml [place], 2 SPRAYS NS DAILY PRN for ALLERGY SYMPTOMS 06/06/18 Calcium Citrate (CALCIUM CITRATE) 250 Mg Tablet, 250 MG PO DAILY 06/06/18 Cyanocobalamin (Vitamin B-12) (VITAMIN B-12) 1,000 Mcg Tab.subl, 1000 MCG SL DAILY 06/06/18 Losartan Potassium (LOSARTAN POTASSIUM) 50 Mg Tablet, 1 TAB PO DAILY 05/23/18 Melatonin (MELATONIN) 5 Mg Tablet, 10 MG PO HS 05/23/18 Fluticasone/Salmeterol (ADVAIR HFA 115-21 MCG INHALER) 12 Gm Hfa.aer.ad, 2 PUFF IH HS 05/17/18 Cetirizine Hcl (CETIRIZINE HCL) 10 Mg Tablet, 10 MG PO QDAY, TAB 03/07/18 Vit C/E/Zn/Coppr/Lutein/Zeaxan (Preservision Areds 2 Softgel) 1 Each Capsule, 1 CAP BID 03/07/18 Cholecalciferol (Vitamin D3) (VITAMIN D3) 2,000 Unit Capsule, 1 CAP PO DAILY, CAPSULE 11/06/17 Vitamin E Acetate (VITAMIN E) 1,000 Unit Capsule, 1 CAP PO DAILY, CAPSULE 10/30/17 Lutein (LUTEIN) 20 Mg Capsule, 1 CAP PO DAILY, CAPSULE 10/30/17 Gluc 2KCL/Chondr/Mary Hy/Hy Ac (GLUCOSAMINE & CHONDROITIN CAP) 1 Each Capsule, 1 CAP PO DAILY, CAPSULE 10/30/17 Multivit-Min/FA/Lycopen/Lutein (Centrum Silver Men Tablet) 300 Mcg-600 Mcg-300 Mcg Tablet, 1 TAB PO DAILY pt states this is chewable form 10/30/17 Fluticasone Prop 50 Mcg Ns (FLONASE 50 MCG NS) 16 Gm [place].susp, 2 SPRAYS NS PRN, BOT 10/30/17 Albuterol Sulfate (VENTOLIN HFA) 18 Gm Inh, 1-2 PUFF INH QID PRN for 30 Days, INH 05/01/14 Ascorbate Calcium (Vitamin C) 500 Mg Tablet, 1 TAB PO DAILY 11/12/12 Past Medical/Surgical History Past Medical History Reviewed: Yes HEENT: Reports hx of: allergic rhinitis (Comes & goes, never allergies shots) Cardiovascular: Reports hx of: atrial fibrillation (Spring 2013, nuclear stress test small area of inferior reversible ischemia) hypertension (Tx since 70's, recent low potassium, spirono started 03/08) Respiratory: Reports hx of: asthma (Started in his 50's. No hospitalizations, Peak flow 400 03/08) pneumonia (Never hospitalized) sleep apnea (Dx about 2003 and uses bipap, works well, no O2 needed) Gastrointestinal: Reports hx of: GERD (before gastric bypass. ) GI bleed (03/07. Had EGD and colonoscopy. ) Musculoskeletal: Reports hx of: gout (in knee then left big toe. was on allopurinol for years. 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 Annual in 03/08. ) 07/03/2017 periprosthetic supracondylar Femus fracture with locking plate and screws Gastrointestinal: Reports hx of: cholecystectomy (done at time of gastric bypass. ) gastric bypass (2004 in [place]. lost 90#) other GI surgery (hemorrhoid surgery x 2, Upper and lower GI scope 2013) Genitourinary: Reports hx of: vasectomy (1970s) Musculoskeletal: Reports hx of: arthroscopy (Right knee 1989) carpal tunnel release (left carpal tunnel about 1999. ) fracture repair (Periprostheric Supracondylar femur fracture 2016) spinal surgery (2017) total joint replacement (TRK 2000, TLK 2006, Right shoulder Hemiarthroplasty 2001,Right reverse total shoulder 2014) 07/03/2017 periprosthetic supracondylar Femus fracture with locking plate and screws Reviewed Nurses Notes: Yes Old Medical Records Reviewed: Yes Hx Smoking: Yes Smoking Status: Former Smoker Hx Substance Use Disorder: No Constitutional Vital Sign - Last 24 Hours 08/12/18 08/12/18 08/12/18 08/12/18 23:26 23:27 23:31 23:32 Temp 97.9 Pulse 79 81 Resp 24 B/P (MAP) 179/105 (129) 179/105 154/106 (122) Pulse Ox 90 92 O2 Delivery Room Air 08/12/18 08/13/18 08/13/18 08/13/18 23:46 00:00 00:05 00:06 Pulse 75 66 B/P (MAP) 141/99 (113) Pulse Ox 88 91 O2 Flow Rate 2.0 08/13/18 08/13/18 08/13/18 08/13/18 00:20 00:30 00:50 01:14 Pulse 74 80 B/P (MAP) 152/97 (115) 151/102 (118) Pulse Ox 93 94 08/13/18 08/13/18 08/13/18 08/13/18 01:20 01:30 01:35 01:50 Pulse 68 64 B/P (MAP) 159/103 (121) Pulse Ox 95 97 96 08/13/18 08/13/18 08/13/18 08/13/18 02:00 02:05 02:20 02:30 Pulse 69 70 B/P (MAP) 167/117 (134) 160/90 (113) Pulse Ox 96 96 08/13/18 02:35 Pulse 74 Pulse Ox 94 Intake and Output 08/12/18 08/12/18 08/13/18 15:00 23:00 07:00 Intake Total 1000 ml Balance 1000 ml Physical Exam Vital signs stable, afebrile, pulse ox normal General Appearance: The patient is alert, has no immediate need for airway protection and no current signs of toxicity. Slightly pale appearing, skin warm and dry HEENT: Pupils equal and round no injection. Oropharynx with moist membranes, no erythema Respiratory: Chest is non tender, lungs are clear to auscultation. Cardiac: regular rate and rhythm Gastrointestinal: Abdomen is distended and firm, mild tenderness in the left upper quadrant and non tender, no masses, bowel sounds normal. Musculoskeletal: Neck: Neck is supple and non tender. No JVD Extremities have full range of motion and are non tender. No extremity edema Skin: No rashes or lesions. [ ] DIFFERENTIAL DIAGNOSIS: After history and physical exam differential diagnosis was considered for abdominal pain including but not limited to appendicitis, cholecystitis, gastritis, bowel obstruction, food poisoning, gastroenteritis and urinary tract infection. Medical Decision Making Data Points Result Diagram: 08/12/18 2071 08/12/18 6211 Laboratory Hematology Test 08/12/18 23:55 08/13/18 01:40 Red Blood Count 4.90 M/uL (4.00-5.60) Mean Corpuscular Volume 75.2 fL (80.0-96.0) Mean Corpuscular Hemoglobin 23.3 pg (26.0-33.0) Mean Corpuscular Hemoglobin Concent 31.0 g/dL (32.0-36.0) Red Cell Distribution Width 16.1 % (11.5-14.5) Mean Platelet Volume 8.5 fL (7.2-11.1) Neutrophils (%) (Auto) 82.8 % (39.4-72.5) Lymphocytes (%) (Auto) 10.0 % (17.6-49.6) Monocytes (%) (Auto) 4.6 % (4.1-12.4) Eosinophils (%) (Auto) 2.1 % (0.4-6.7) Basophils (%) (Auto) 0.5 % (0.3-1.4) Nucleated RBC Relative Count (auto) 0.0 /100WBC Neutrophils # (Auto) 10.9 K/uL (2.0-7.4) Lymphocytes # (Auto) 1.3 K/uL (1.3-3.6) Monocytes # (Auto) 0.6 K/uL (0.3-1.0) Eosinophils # (Auto) 0.3 K/uL (0.0-0.5) Basophils # (Auto) 0.1 K/uL (0.0-0.1) Nucleated RBC Absolute Count (auto) 0.00 K/uL Sodium Level 142 mmol/L (137-145) Potassium Level 3.6 mmol/L (3.5-5.0) Chloride Level 109 mmol/L (98-107) Carbon Dioxide Level 20 mmol/L (22-30) Blood Urea Nitrogen 23 mg/dl (9-21) Creatinine 1.10 mg/dl (0.66-1.25) Glomerular Filtration Rate Calc > 60.0 Random Glucose 162 mg/dl (75-110) Lactate 1.7 mmol/L (0.7-2.1) Calcium Level 9.2 mg/dl (8.4-10.2) Total Bilirubin 0.5 mg/dl (0.2-1.3) Aspartate Amino Transf (AST/SGOT) 26 U/L (0-35) Alanine Aminotransferase (ALT/SGPT) 33 U/L (0-56) Alkaline Phosphatase 123 U/L (0-126) Troponin I < 0.012 ng/ml Total Protein 6.7 g/dl (6.3-8.2) Albumin 3.7 g/dl (3.5-5.0) Amylase Level 65 U/L (0-110) Lipase 129 U/L (23-300) Urine Color Yellow Urine Clarity Clear Urine pH 5.0 pH (4.8-9.5) Urine Specific [place] 1.036 Urine Protein Negative mg/dL (NEGATIVE) Urine Glucose (UA) Negative mg/dL (NEGATIVE) Urine Ketones 20 mg/dL (NEGATIVE) Urine Blood Negative (NEGATIVE) Urine Nitrite Negative (NEGATIVE) Urine Bilirubin Negative (NEGATIVE) Urine Urobilinogen Negative mg/dL (0.2-1.9) Urine Leukocyte Esterase Negative (NEGATIVE) Urine RBC <1 /HPF (0-2/HPF) Urine WBC <1 /HPF (0-5/HPF) Urine Squamous Epithelial Cells Few /LPF (</=FEW) Urine Bacteria Negative /HPF (NONE-FEW) Urine Mucus None /HPF (NONE-FEW) Chemistry Test 08/12/18 23:55 08/13/18 01:40 White Blood Count 13.1 k/uL (4.5-11.0) Red Blood Count 4.90 M/uL (4.00-5.60) Hemoglobin 11.4 g/dL (14.0-18.0) Hematocrit 36.8 % (42.0-52.0) Mean Corpuscular Volume 75.2 fL (80.0-96.0) Mean Corpuscular Hemoglobin 23.3 pg (26.0-33.0) Mean Corpuscular Hemoglobin Concent 31.0 g/dL (32.0-36.0) Red Cell Distribution Width 16.1 % (11.5-14.5) Platelet Count 262 K/uL (150-450) Mean Platelet Volume 8.5 fL (7.2-11.1) Neutrophils (%) (Auto) 82.8 % (39.4-72.5) Lymphocytes (%) (Auto) 10.0 % (17.6-49.6) Monocytes (%) (Auto) 4.6 % (4.1-12.4) Eosinophils (%) (Auto) 2.1 % (0.4-6.7) Basophils (%) (Auto) 0.5 % (0.3-1.4) Nucleated RBC Relative Count (auto) 0.0 /100WBC Neutrophils # (Auto) 10.9 K/uL (2.0-7.4) Lymphocytes # (Auto) 1.3 K/uL (1.3-3.6) Monocytes # (Auto) 0.6 K/uL (0.3-1.0) Eosinophils # (Auto) 0.3 K/uL (0.0-0.5) Basophils # (Auto) 0.1 K/uL (0.0-0.1) Nucleated RBC Absolute Count (auto) 0.00 K/uL Glomerular Filtration Rate Calc > 60.0 Lactate 1.7 mmol/L (0.7-2.1) Calcium Level 9.2 mg/dl (8.4-10.2) Total Bilirubin 0.5 mg/dl (0.2-1.3) Aspartate Amino Transf (AST/SGOT) 26 U/L (0-35) Alanine Aminotransferase (ALT/SGPT) 33 U/L (0-56) Alkaline Phosphatase 123 U/L (0-126) Troponin I < 0.012 ng/ml Total Protein 6.7 g/dl (6.3-8.2) Albumin 3.7 g/dl (3.5-5.0) Amylase Level 65 U/L (0-110) Lipase 129 U/L (23-300) Urine Color Yellow Urine Clarity Clear Urine pH 5.0 pH (4.8-9.5) Urine Specific [place] 1.036 Urine Protein Negative mg/dL (NEGATIVE) Urine Glucose (UA) Negative mg/dL (NEGATIVE) Urine Ketones 20 mg/dL (NEGATIVE) Urine Blood Negative (NEGATIVE) Urine Nitrite Negative (NEGATIVE) Urine Bilirubin Negative (NEGATIVE) Urine Urobilinogen Negative mg/dL (0.2-1.9) Urine Leukocyte Esterase Negative (NEGATIVE) Urine RBC <1 /HPF (0-2/HPF) Urine WBC <1 /HPF (0-5/HPF) Urine Squamous Epithelial Cells Few /LPF (</=FEW) Urine Bacteria Negative /HPF (NONE-FEW) Urine Mucus None /HPF (NONE-FEW) Urinalysis Test 08/13/18 01:40 Urine Color Yellow Urine Clarity Clear Urine pH 5.0 pH (4.8-9.5) Urine Specific [place] 1.036 Urine Protein Negative mg/dL (NEGATIVE) Urine Glucose (UA) Negative mg/dL (NEGATIVE) Urine Ketones 20 mg/dL (NEGATIVE) Urine Blood Negative (NEGATIVE) Urine Nitrite Negative (NEGATIVE) Urine Bilirubin Negative (NEGATIVE) Urine Urobilinogen Negative mg/dL (0.2-1.9) Urine Leukocyte Esterase Negative (NEGATIVE) Urine RBC <1 /HPF (0-2/HPF) Urine WBC <1 /HPF (0-5/HPF) Urine Squamous Epithelial Cells Few /LPF (</=FEW) Urine Bacteria Negative /HPF (NONE-FEW) Urine Mucus None /HPF (NONE-FEW) EKG/Imaging EKG Interpretation 12 lead EK Rhythm: Atrial fibrillation with slow ventricular rate of 66 [place]: Left axis deviation QRS: normal ST segments: Nonspecific T wave abnormality,? Dig effect, comparison to previous old EKGs dated 05/17/18, no significant morphologic change, rate was slightly faster at 77 bpm. Imaging Results: CT scan of the abdomen and pelvis with IV contrast was obtained. The results of the study are ABDOMEN/PELVIS WITH CONTRAST HISTORY: Left lower quadrant abdominal pain. Status post gastric bypass. COMPARISON: CT pelvis 04/26/2014. No prior CT of the abdomen. TECHNIQUE: Axial images were obtained from the lung bases through the symphysis pubis with intravenous contrast. Sagittal and coronal reformats were performed. One of the following dose optimization techniques was utilized in the performance of this exam: Automated exposure control; adjustment of the mA and/or kV according to the patient's size; or use of an iterative reconstruction technique. Specific details can be referenced in the facility's radiology CT exam operational policy. CONTRAST: 75 mL IV [id number]. FINDINGS: Lower chest: There is a calcified left hilar lymph nodes, compatible with prior granulomatous disease. There is coronary artery calcification. There is mild atelectasis.. Liver: There are more than 10 scattered lesions within the liver. The largest and most discrete have Hounsfield units of fluid, compatible with benign cysts. In the absence of known malignancy, the smaller lesions are also statistically likely to represent benign cysts and/or hemangiomas. None of them change on delayed imaging, favoring that they are cysts. Gallbladder/biliary: Cholecystectomy. There is mild intrahepatic and extrahepatic ductal dilation, not uncommonly seen in patients who are status post cholecystectomy. No ductal filling defect. Pancreas: Normal. Spleen: There are calcified granulomas. There is 6 mm too small to characterize low attenuating lesion in the posterior superior spleen. In the absence of known malignancy, it is statistically likely to represent a benign hemangioma or cyst. It does not change on delayed imaging, favoring a cyst. Adrenals: Normal. Kidneys/ureters/bladder: There is a subcentimeter exophytic cyst arising from the left superior renal cortex. The right kidney, the ureters, and the bladder are normal. GI/mesentery/peritoneal cavity: There are changes of gastric bypass. There is a small bowel obstruction. The transition is in the right lower quadrant in the distal ileum (axial image 71). Appreciated on axial images, but not well appreciated on the sagittal or coronal images, there is approximately 270 degree swirling of the distal ileum (axial images 71 through 86 series 2). There is also slight swirling of the adjacent mesenteric vessels. Many of the dilated small bowel loops are clustered in the right side of the abdomen, and some of them are located anterior and right lateral to the colon and the liver. On the prior CT pelvis, small bowel loops were not lateral or anterior to the visible colon. There is a small amount of mesenteric free fluid adjacent to these bowel loops. No free air. The appendix is normal. Within the cecum, near or at the ileocecal valve, is a large 6.8 cm lesion of fat attenuation. Vessels: There is mild atherosclerotic disease without aneurysm. No dissection. Nodes: Normal. Pelvis: There is a moderate size fat-containing left inguinal hernia. There are pelvic phleboliths. Bones/vertebra/soft tissues: There is posterior fusion hardware from L3 through L5. Hardware is intact. There is bony fusion across the L2-3 disc space. There is moderate to severe multilevel degenerative change of the spine. There is 3 mm retrolisthesis of L5 compared to S1. There is 4 mm retrolisthesis of L1 compared to L2. There are numerous Schmorl nodes. Posterior decompression at L3 and L4. There is fluid within the posterior paraspinal muscles at these levels, and there is dependent subcutaneous edema, all likely related to prior surgery. IMPRESSION 1. Small bowel obstruction with transition in the right lower quadrant distal ilium. There is 270 degrees swirling of the distal ileum. While small bowel obstruction could be due to adhesion, given the swirling of the small bowel in the stomach clustered small bowel loops, possibility of internal hernia is raised. 2. Small amount of reactive mesenteric free fluid secondary to small bowel o bstruction. 3. Moderate-sized fat-containing left inguinal hernia. 4. 6.8 cm lesion of fat attenuation at/near the ileocecal valve may be a lipoma. Extensive fatty hypertrophy of the ileocecal valve is possible. The study was read by the radiologist. I viewed the images myself on the PACS system. ED Course/Re-evaluation Clinical Indication for ER IV: Hydration, IV Access ED Course Patient was admitted to an examination room. H&P was done. The differential diagnoses was considered. Patient with distended abdomen and pain for several hours. He is here with significant discomfort. He describes crampy pain in the left upper quadrant. He notes no radiation of pain anywhere else. He's had no change in bowel habits. He's had severe nausea but no vomiting. He denies dysuria. Extensive diagnostic evaluation is undertaken, which is unremarkable except for mildly elevated white blood cell count. Patient continued to have significant discomfort and distention. A CT of the abdomen and pelvis is ordered. Since he has a previous history of a gastric bypass sign concerned about obstruction. A CT scan was positive for signs of obstruction. Results were discussed with general surgery on-call, Dr. Alvarenga 08/13/2018 1:43:54 am case discussed with Dr Hicks for consultation Decision to Disposition Date: Aug 13, 2018 Decision to Disposition Time: 01:43 Depart Departure Latest Vital Signs Vital Signs Date Time Temp Pulse Resp B/P (MAP) Pulse Ox O2 Delivery O2 Flow Rate FiO2 08/13/18 02:35 74 94 08/13/18 02:30 160/90 (113) 08/13/18 00:06 2.0 08/12/18 23:27 97.9 24 Room Air Impression: Primary Impression: SBO (small bowel obstruction) Additional Impressions: Atrial fibrillation HTN (hypertension) Condition: Improved Disposition: Admitted from ER Referrals: MIK FLORES MD (PCP) Problem Qualifiers Additional Impressions: Atrial fibrillation Atrial fibrillation type: paroxysmal Qualified Codes: I48.0 - Paroxysmal atrial fibrillation HTN (hypertension) Hypertension type: essential hypertension Qualified Codes: I10 - Essential (primary) hypertension LUDY ROMERO DO Aug 12, 2018 23:28
[2018-08-12] MEDS ORDERED: NS(*) 0.9% 1000 ML BAG 1,000 ML IV ONE (23:39)
[2018-08-12] MEDS ORDERED: ONDANSETRON 4 MG/2 ML VIAL IVP ONE (23:40)
[2018-08-12] MEDS ORDERED: fentaNYL CITR 100 MCG/2 ML AMP IVP ONE (23:40)
--- NOTE | 2018-08-12 23:44 | EKG ---
FACILITY: [facility] PATIENT NAME: TIGRE CABALLERO : [id number] MR: [id number] V: [id number] EXAM DATE: ORDERING PHYSICIAN: LUDY ROMERO TECHNOLOGIST: LOR Test Reason : ABDOMINAL PAIN Blood Pressure : / mmHG Vent. Rate : 066 BPM Atrial Rate : 077 BPM P-R Int : 000 ms QRS Dur : 096 ms QT Int : 428 ms P-R-T Axes : 000 -61 011 degrees QTc Int : 448 ms Atrial fibrillation Left axis deviation Nonspecific ST abnormality Abnormal ECG When compared with ECG of 17-MAY-2018 14:56, No significant change was found Confirmed by ZAKIYA PYLE ([id number]) on 08/13/2018 6:15:06 AM Referred By: Confirmed By:ZAKIYA PYLE
[2018-08-13 00:06] LABS: PLATELET COUNT, AUTOMATED 262 K/uL (150-450)
[2018-08-13] MEDS ORDERED: fentaNYL CITR 100 MCG/2 ML AMP IVP ONE (00:45)
[2018-08-13] MEDS ORDERED: IOPAMIDOL 76% 75 ML INFUS BTL 75 ML ONE (00:52)
[2018-08-13] MEDS ORDERED: HYDROMORPHONE HCL 1 MG/ML SYRINGE IVP ONE (02:15)
[2018-08-13] MEDS ORDERED: ALBUTEROL 8 GM INHALER INH PRN ×2 (02:25→03:25)
[2018-08-13] MEDS ORDERED: NALOXONE HCL 0.4 MG/ML VIAL IVP PRN (02:25)
[2018-08-13] MEDS ORDERED: ACETAMINOPHEN(*)1000 MG/100 ML 100 ML IVPB PRN (02:25)
[2018-08-13] MEDS ORDERED: FLUSH 10 ML SYR IVP PRN (02:25)
--- NOTE | 2018-08-13 02:25 | RADIOLOGY IMAGING REPORT ---
FACILITY: [facility] PATIENT NAME: Devonte Price : 1940 MR: [id number] V: [id number] EXAM DATE: ORDERING PHYSICIAN: LUDY ROMERO TECHNOLOGIST: Location: [facility] Patient: Devonte Price : 1940 Visit/Account:[id number] Date of Sevice: 08/13/2018 ADDENDUM #1 Due to voice recognition error, in third sentence of impression 1 the words "in the stomach" should b e corrected to "and the somewhat". Report Dictated By: Bita Hickman at 08/14/2018 5:59 AM Report E-Signed By: Bita Hickman at 08/14/2018 6:02 AM ORIGINAL REPORT ABDOMEN/PELVIS WITH CONTRAST HISTORY: Left lower quadrant abdominal pain. Status post gastric bypass. COMPARISON: CT pelvis 04/26/2014. No prior CT of the abdomen. TECHNIQUE: Axial images were obtained from the lung bases through the symphysis pubis with intravenou s contrast. Sagittal and coronal reformats were performed. One of the following dose optimization techniques was utilized in the performance of this exam: Autom ated exposure control; adjustment of the mA and/or kV according to the patient's size; or use of an i terative reconstruction technique. Specific details can be referenced in the facility's radiology CT exam operational policy. CONTRAST: 75 mL IV [id number]. FINDINGS: Lower chest: There is a calcified left hilar lymph nodes, compatible with prior granulomatous disease . There is coronary artery calcification. There is mild atelectasis.. Liver: There are more than 10 scattered lesions within the liver. The largest and most discrete have Hounsfield units of fluid, compatible with benign cysts. In the absence of known malignancy, the smal ler lesions are also statistically likely to represent benign cysts and/or hemangiomas. None of them change on delayed imaging, favoring that they are cysts. Gallbladder/biliary: Cholecystectomy. There is mild intrahepatic and extrahepatic ductal dilation, no t uncommonly seen in patients who are status post cholecystectomy. No ductal filling defect. Pancreas: Normal. Spleen: There are calcified granulomas. There is 6 mm too small to characterize low attenuating lesio n in the posterior superior spleen. In the absence of known malignancy, it is statistically likely to represent a benign hemangioma or cyst. It does not change on delayed imaging, favoring a cyst. Adrenals: Normal. Kidneys/ureters/bladder: There is a subcentimeter exophytic cyst arising from the left superior renal cortex. The right kidney, the ureters, and the bladder are normal. GI/mesentery/peritoneal cavity: There are changes of gastric bypass. There is a small bowel obstructi on. The transition is in the right lower quadrant in the distal ileum (axial image 71). Appreciated o n axial images, but not well appreciated on the sagittal or coronal images, there is approximately 27 0 degree swirling of the distal ileum (axial images 71 through 86 series 2). There is also slight swi rling of the adjacent mesenteric vessels. Many of the dilated small bowel loops are clustered in the right side of the abdomen, and some of them are located anterior and right lateral to the colon and t he liver. On the prior CT pelvis, small bowel loops were not lateral or anterior to the visible colon . There is a small amount of mesenteric free fluid adjacent to these bowel loops. No free air. The appendix is normal. Within the cecum, near or at the ileocecal valve, is a large 6.8 cm lesion of fat attenuation. Vessels: There is mild atherosclerotic disease without aneurysm. No dissection. Nodes: Normal. Pelvis: There is a moderate size fat-containing left inguinal hernia. There are pelvic phleboliths Jeovanny tae/vertebra/soft tissues: There is posterior fusion hardware from L3 through L5. Hardware is intact. There is bony fusion across the L2-3 disc space. There is moderate to severe multilevel degenerative change of the spine. There is 3 mm retrolisthesis of L5 compared to S1. There is 4 mm retrolisthesis of L1 compared to L2. There are numerous Schmorl nodes. Posterior decompression at L3 and L4. There is fluid within the posterior paraspinal muscles at these levels, and there is dependent subcutaneous edema, all likely related to prior surgery. IMPRESSION: 1. Small bowel obstruction with transition in the right lower quadrant distal ilium. There is 270 deg josi swirling of the distal ileum. While small bowel obstruction could be due to adhesion, given the swirling of the small bowel in the stomach clustered small bowel loops, possibility of internal herni a is raised. 2. Small amount of reactive mesenteric free fluid secondary to small bowel obstruction. 3. Moderate-sized fat-containing left inguinal hernia. 4. 6.8 cm lesion of fat attenuation at/near the ileocecal valve may be a lipoma. Extensive fatty hype rtrophy of the ileocecal valve is possible. These findings were discussed by phone with LUDY ROMERO on 08/13/2018 2:15 AM. Report Dictated By: Bita Hickman at 08/13/2018 1:40 AM Report E-Signed By: Bita Hickman at 08/13/2018 2:21 AM WSN:[id number]
--- NOTE | 2018-08-13 02:36 | Gen Surgery History & Physical ---
History of Present Illness Chief Complaint Abdominal pain History of Present Illness 78-year-old gentleman presents with several hours of diffuse abdominal pain and increased abdominal distention. This started about an hour before presentation to the emergency room. No nausea or vomiting. He is passing a little flatus and his last bowel movement was just before the symptoms started. No blood in his stools. He came into the emergency room where he was found to have a mild leukocytosis and a CT scan is consistent with a small bowel obstruction. This is his 1st bowel obstruction. His only abdominal surgery is a Kyrie-en-Y divided gastric bypass with concurrent cholecystectomy 14 years ago in 2003. He has had multiple orthopedic surgeries including a lumbar spine fusion [address] Price[address] He's also had bilateral total knee arthroplasties and a right femur rodding. History Problems: (1) H/O gastric bypass Status: Chronic (2) Hx of cholecystectomy Status: Chronic (3) History of bilateral knee replacement Status: Chronic (4) Intrinsic asthma Status: Chronic (5) DENISHA (obstructive sleep apnea) Status: Chronic (6) Atrial fibrillation Status: Chronic (7) HTN (hypertension) Status: Chronic Home Meds Active Scripts Montelukast Sodium (SINGULAIR) 10 Mg Tablet, 1 TAB PO HS for 90 Days, #90 TAB 4 Refills Prov:MIK FLORES MD 08/09/18 Diclofenac Sodium 1% Gel (VOLTAREN 1% GEL) 100 Gm Gel..gram., 2 GM TOP BID for 30 Days, #1 TUBE Prov:MIK FLORES MD 06/26/18 Rivaroxaban 20 Mg (XARELTO 20 MG) 20 Mg Tablet, 1 TAB PO DAILY, #30 TAB 0 Refills Prov:WU PARADA MD 06/25/15 Reported Medications Triamcinolone Acetonide (Nasacort) 10.8 Ml [place], 2 SPRAYS NS DAILY PRN for ALLERGY SYMPTOMS 06/06/18 Calcium Citrate (CALCIUM CITRATE) 250 Mg Tablet, 250 MG PO DAILY 06/06/18 Cyanocobalamin (Vitamin B-12) (VITAMIN B-12) 1,000 Mcg Tab.subl, 1000 MCG SL DAILY 06/06/18 Losartan Potassium (LOSARTAN POTASSIUM) 50 Mg Tablet, 1 TAB PO DAILY 05/23/18 Melatonin (MELATONIN) 5 Mg Tablet, 10 MG PO HS 05/23/18 Fluticasone/Salmeterol (ADVAIR HFA 115-21 MCG INHALER) 12 Gm Hfa.aer.ad, 2 PUFF IH HS 05/17/18 Cetirizine Hcl (CETIRIZINE HCL) 10 Mg Tablet, 10 MG PO QDAY, TAB 03/07/18 Vit C/E/Zn/Coppr/Lutein/Zeaxan (Preservision Areds 2 Softgel) 1 Each Capsule, 1 CAP BID 03/07/18 Cholecalciferol (Vitamin D3) (VITAMIN D3) 2,000 Unit Capsule, 1 CAP PO DAILY, CAPSULE 11/06/17 Vitamin E Acetate (VITAMIN E) 1,000 Unit Capsule, 1 CAP PO DAILY, CAPSULE 10/30/17 Lutein (LUTEIN) 20 Mg Capsule, 1 CAP PO DAILY, CAPSULE 10/30/17 Gluc 2KCL/Chondr/Mary Hy/Hy Ac (GLUCOSAMINE & CHONDROITIN CAP) 1 Each Capsule, 1 CAP PO DAILY, CAPSULE 10/30/17 Multivit-Min/FA/Lycopen/Lutein (Centrum Silver Men Tablet) 300 Mcg-600 Mcg-300 Mcg Tablet, 1 TAB PO DAILY pt states this is chewable form 10/30/17 Fluticasone Prop 50 Mcg Ns (FLONASE 50 MCG NS) 16 Gm [place].susp, 2 SPRAYS NS PRN, BOT 10/30/17 Albuterol Sulfate (VENTOLIN HFA) 18 Gm Inh, 1-2 PUFF INH QID PRN for 30 Days, INH 05/01/14 Ascorbate Calcium (Vitamin C) 500 Mg Tablet, 1 TAB PO DAILY 11/12/12 Allergies: Coded Allergies: morphine (Unverified Allergy, Intermediate, TURNS RED, 08/12/18) "felt like run over by truck" Uncoded Allergies: HAYFEVER (Allergy, Unknown, 02/18/14) Patient History: Asthma FATHER, , Age:56 FH: COPD (chronic obstructive pulmonary disease) MOTHER, , Age:84 FH: [place] (myocardial infarction) MOTHER, , Age:84 FH: macular degeneration MOTHER, , Age:84 FH: pancreatic cancer BROTHER, , Age:60 years and older Review of Systems All Systems Reviewed/Normal: Yes, Except as Noted Gastrointestinal: Abdominal Pain Exam General Appearance: Alert, Awake, No Acute Distress, Afebrile Neuro: No Gross deficits Eyes: PERRLA GI: Other (soft, diffuse tenderness to palpation, no peritoneal signs, distended and tympanic) Extremities: Warm, Perfused Psych: Alert & Oriented X3, Appropriate Mood & Affect Medical Decision Making Data Points Result Diagram: 08/12/18 23508/12/18 2355 Assessment and Plan Problems: (1) SBO (small bowel obstruction) Status: Acute Assessment & Plan: 08/13/18: Admit, will start with conservative management with bowel rest, we'll keep him nothing by mouth with IV fluids. If he fails to improve over the next couple of days then he may require surgical exploration. May consider a water soluble small bowel follow-through if he fails to improve over the next 24 hours or so. I have explained bowel obstructions with this patient as well as their treatment and I have explained this plan to him. He seems to understand and seems agreeable with this plan. Condition Stable Time Spent: < 30 min Venous Thromboembolism VTE Risk Physician Assess for VTE Risk: Yes Patient's VTE Risk: Low VTE Diagnostic Test 2 Days Prior to Admit: No Antithrombotics Is Pt On Any Antithrombotics?: No BALDOMERO JOHNSON MD Aug 13, 2018 02:35
[2018-08-13 03:22] VITALS: BP 157/105
[2018-08-13] MEDS: ONDANSETRON 4 MG/2 ML VIAL IVP PRN ×3 (03:42→20:44)
[2018-08-13] MEDS: HYDROmorphone HCL 2 MG/ML SDV IVP PRN ×3 (03:42→11:35)
[2018-08-13] MEDS: NS(*) 0.9% 1000 ML BAG 1,000 ML IV PRN ×3 (03:50→20:44)
[2018-08-13 07:44] VITALS: BP 138/85
--- NOTE | 2018-08-13 08:14 | General Surgery Progress Note ---
Subjective Progress Notes Subjective No pain this morning. Feeling a little better but no flatus or BM since before admission. Physical Exam Vital Signs Date Time Temp Pulse Resp B/P (MAP) Pulse Ox O2 Delivery O2 Flow Rate FiO2 08/13/18 07:44 99.0 75 16 138/85 (102) 93 Nasal Cannula 1.5 Intake and Output 08/13/18 06:59 Intake Total 1000 ml Balance 1000 ml Intake IV Total 1000 ml General Appearance: Alert, Awake, No Acute Distress, Afebrile GI: Soft and Non-Tender (distended) Extremities: Warm, Perfused Result Diagram: 08/12/18 2355 08/12/18 235 Assessment and Plan Problems: (1) SBO (small bowel obstruction) Status: Acute Assessment & Plan: 08/13/18: Admit, will start with conservative management with bowel rest, we'll keep him nothing by mouth with IV fluids. If he fails to improve over the next couple of days then he may require surgical exploration. May consider a water soluble small bowel follow-through if he fails to improve over the next 24 hours or so. I have explained bowel obstructions with this patient as well as their treatment and I have explained this plan to him. He seems to understand and seems agreeable with this plan. 08/13/18: Feels a little better but no flatus or BM although pain and exam seem to be somewhat improved. Continue bowel rest and IV fluids. Will check KUB tomorrow morning. If not resolved by tomorrow will get a SBFT with water- soluble contrast. Pt agreeable with this plan. Condition Stable. Time Spent: < 30 min Exam Sepsis Risk: No Definite Risk BALDOMERO JOHNSON MD Aug 13, 2018 08:14
[2018-08-13] MEDS: PANTOPRAZOLE SOD 40 MG IV VIAL IVP SCH (08:51)
[2018-08-13] MEDS: ENOXAPARIN 40 MG/0.4ML SYR SC SCH (08:51)
[2018-08-13] MEDS: LOSARTAN POTASSIUM 50 MG TAB PO SCH (08:52)
[2018-08-13] MEDS ORDERED: DICL100G39 TOP (10:36)
[2018-08-13 11:32] VITALS: BP 131/85
--- NOTE | 2018-08-13 12:51 | Medical Nutrition Therapy ---
Nutrition Anthropometrics Height (Inches): 67.00 Height (Calculated Centimeters: 170.175760 Weight (Pounds): 233 Weight (Calculated Kilograms): 105.687 BMI: 36.5 Jase Nutrition Score: Adequate Jase Nutrition Risk Score: 20 Dietary Referral Nutrition Risk Factors: Nutrition Risk Comment: Small bowel obstruction. Physical Findings Physical Appearance: Obese BMI 30-39 Skin Appearance Skin Appearance: Edema Edema Location Modifier: Edema Location: Type of Edema: Degree of Edema: Gastrointestinal Symptoms GI Symtoms: Bloating Tube Present: Bowel Sounds: Recent Bowel Pattern: Stool Characteristics: Nutritional Diagnosis Nutritional Risk Acuity 1: GI Obstruction Past Medical History: Hx of Afib, HTN, COPD, pneumonia, Obstructive Sleep [place]pen[place], and intrinsic asthma, gastric bypass. Nutritional Acuity: 1-High Nutrition Diagnosis: Altered GI Function Nutrition Etiology: Physiological Causes Nutrition Problem/Etiology/Sym: Altered GI function r/t physiological causes AEB obstruction, no flatus or bowel movements. Energy Requirement: 1590 (Price-[place] adj for obesity * 1.2) Protein Requirement: 95 (.9g/kg) Fluid Requirement: 2100 (20ml/kg) Diet Type: NPO/Meds Only Nutrition Intervention: Incr diet as tolerated Nutrition Monitoring & Eval Nutrition Goals: Eat 75-100% Meal, Drink > 1500 cc/day RD Patient Assessment Time: [address] Assessment Type: RD Assessment Patient Nutrition Acuity: 1-High Follow Up Date: Aug 15, 2018 Nutritional Comment: 08/13 Pt admitted with SBO. Pt is NPO/Meds only. Hx of A-fib, HTN, COPD, pneumonia, Obstructive Sleep [place]pena, intrinsic asthma, and gastric bypass (2003). Pt's pain is better this morning, but still has bloating, no flatus or bowel movement since admission. Pt has elevated glucose at 162 and BUN at 23. Pt has 3+ edema, anticipate weight loss. Will follow. JUN HESS Aug 13, 2018 09:26
[2018-08-13 15:32] VITALS: BP 131/86
[2018-08-13] MEDS ORDERED: BENZOCAINE/TETRACAINE/BUTAMBEN TOP ONE (18:45)
[2018-08-13] MEDS ORDERED: LIDOCAINE 2% VISC SLN 15ML UDC PO ONE (18:45)
[2018-08-13] MEDS ORDERED: LIDOCAINE 2% JELLY 5 ML TUBE TOP ONE (18:55)
[2018-08-13] MEDS ORDERED: LIDOCAINE 5% OINT 35.44 GM OINT TP ONE (19:00)
[2018-08-13] MEDS ORDERED: PROMETHAZINE 25 MG/ML 1 ML AMP IVP PRN ×2 (19:05→19:20)
[2018-08-13 19:45] VITALS: BP 167/101
[2018-08-13] MEDS: MELATONIN 3 MG TAB PO SCH (20:43)
[2018-08-13] MEDS ORDERED: SALMETEROL/FLUTIC 250/50 1 INH INH SCH (21:00)
[2018-08-13] MEDS ORDERED: SALMETEROL IH SCH (21:00)
[2018-08-13] MEDS ORDERED: FLUTICASONE IH SCH (21:00)
[2018-08-13] MEDS ORDERED: [UNRECOGNIZED DRUG - OTHER] IH SCH (21:00)
[2018-08-13] MEDS: MONTELUKAST SODIUM 10 MG TAB PO SCH (21:00)
[2018-08-13] MEDS ORDERED: MELATONIN 10 MG PO SCH (21:00)
--- NOTE | 2018-08-13 23:38 | RADIOLOGY IMAGING REPORT ---
[place] [facility] [place]IENT NAME: Devonte Price : 1940 MR: [id number] V: [id number] EXAM DATE: ORDERING PHYSICIAN: BALDOMERO JOHNSON TECHNOLOGIST: Location: [facility] Patient: Devonte Price : 1940 Visit/Account:[id number] Date of Sevice: 08/13/2018 CHEST SINGLE AP 08/13/2018 19:00 hours. HISTORY: Small bowel obstruction. Enteric tube placement. COMPARISON: 07/01/2017 and studies dating to 07/12/2009. TECHNIQUE: Portable AP view of the chest. FINDINGS: Tubes/lines/hardware: NG or OG tube terminates in the body of the stomach. There are surgical clips t he right upper quadrant from cholecystectomy. Pulmonary: Right hemidiaphragm elevation is unchanged. There is mild bibasilar atelectasis, unchanged . There is no pneumothorax or pleural effusion. Cardiomediastinal: Cardiac and mediastinal silhouettes are within normal limits. Bones/soft tissues: There is mild degenerative change of the spine. Partially visualized right should er arthroplasty. Mild degenerative change of the left glenohumeral joint. There are dilated small bow el loops in the abdomen. IMPRESSION: 1. NG or OG tube terminates in the stomach. 2. Dilated small bowel loops, in keeping with small bowel obstruction. 3. Mild bibasilar atelectasis. Report Dictated By: Bita Hickman at 08/13/2018 11:33 PM Report E-Signed By: Bita Hickman at 08/13/2018 11:35 PM WSN:[id number]
[2018-08-13 23:53] VITALS: BP 152/92
[2018-08-14 03:57] VITALS: BP 139/93
[2018-08-14] MEDS: NS(*) 0.9% 1000 ML BAG 1,000 ML IV PRN ×3 (05:02→22:32)
--- NOTE | 2018-08-14 05:42 | General Surgery Progress Note ---
Subjective Progress Notes Subjective Feeling a little better this morning. No abdominal pain. Placed NG tube last evening, only about 150cc out since placement, nonbilious but he's had RYDGB surgery 14 yrs ago. Physical Exam Vital Signs Date Time Temp Pulse Resp B/P (MAP) Pulse Ox O2 Delivery O2 Flow Rate FiO2 08/14/18 04:26 85 08/14/18 03:57 98.9 70 14 139/93 (108) Nasal Cannula 3.0 Intake and Output 08/14/18 07:00 Intake Total 2120 ml Output Total 660 ml Balance 1460 ml Intake IV Total 2120 ml Output Urine Total 510 ml Gastric Drainage Total 150 ml # Voids 1 General Appearance: Alert, Awake, No Acute Distress, Afebrile GI: Soft and Non-Tender Extremities: Warm, Perfused Result Diagram: 08/12/18 2355 08/12/18 2352 Assessment and Plan Problems: (1) SBO (small bowel obstruction) Status: Acute Assessment & Plan: 08/13/18: Admit, will start with conservative management with bowel rest, we'll keep him nothing by mouth with IV fluids. If he fails to improve over the next couple of days then he may require surgical exploration. May consider a water soluble small bowel follow-through if he fails to improve over the next 24 hours or so. I have explained bowel obstructions with this patient as well as their treatment and I have explained this plan to him. He seems to understand and seems agreeable with this plan. 08/13/18: Feels a little better but no flatus or BM although pain and exam seem to be somewhat improved. Continue bowel rest and IV fluids. Will check KUB tomorrow morning. If not resolved by tomorrow will get a SBFT with water- soluble contrast. Pt agreeable with this plan. 08/14/18: Feeling a little better this morning. Still no flatus. Will get a water-soluble SBFT today and see if he'll open up. Continue bowel rest, IV fluids, NG tube decompression. Condition Stable. Time Spent: < 30 min Exam Sepsis Risk: No Definite Risk BALDOMERO JOHNSON MD Aug 14, 2018 05:42
--- NOTE | 2018-08-14 06:00 | RADIOLOGY IMAGING REPORT ---
FACILITY: [facility] - [place] PATIENT NAME: Devonte Price : 1940 MR: [id number] V: [id number] EXAM DATE: ORDERING PHYSICIAN: BALDOMERO JOHNSON TECHNOLOGIST: Location: [facility] Patient: Devonte Price : 1940 Visit/Account:[id number] Date of Sevice: 08/14/2018 KUB SINGLE VIEW ABDOMEN HISTORY: Small bowel obstruction. COMPARISON: CT abdomen and pelvis 08/13/2018. FINDINGS: 2 supine views of the abdomen were obtained. NG or OG tube terminates within the stomach. There is posterior lumbar fusion hardware from L4 throug h S1. Distribution of bowel gas is normal with bowel in all four quadrants as well as centrally. No free ai r. There are persistently dilated small bowel loops, although fewer dilated bowel loops than were pre sent on the CT examination. There is moderate degenerative change of the spine. There is mild leftward curvature of the lumbar sp ine. IMPRESSION: 1. Persistently dilated small bowel loops, although less dilated bowel loops than were present on pre vious CT, suggesting improving small bowel obstruction. Report Dictated By: Bita Hickman at 08/14/2018 5:55 AM Report E-Signed By: Bita Hickman at 08/14/2018 5:57 AM WSN:[email or web address]
[2018-08-14 06:08] LABS: PLATELET COUNT, AUTOMATED 241 K/uL (150-450)
[2018-08-14 07:09] VITALS: BP 138/89
[2018-08-14] MEDS: LOSARTAN POTASSIUM 50 MG TAB PO SCH (09:02)
[2018-08-14] MEDS: ENOXAPARIN 40 MG/0.4ML SYR SC SCH (09:02)
[2018-08-14] MEDS: PANTOPRAZOLE SOD 40 MG IV VIAL IVP SCH (09:02)
[2018-08-14] MEDS ORDERED: DIATRIZOATE MEGL/DIATRIZOA SOD 120 ML SOLN PO ONE (09:03)
[2018-08-14 11:13] VITALS: BP 154/98
[2018-08-14 15:22] VITALS: BP 145/91
--- NOTE | 2018-08-14 15:58 | RADIOLOGY IMAGING REPORT ---
[place] [facility] [place] NAME: Devonte Price : 1940 MR: [id number] V: [id number] EXAM DATE: ORDERING PHYSICIAN: BALDOMERO JOHNSON TECHNOLOGIST: Location: [facility] Patient: Devonte Price : 1940 Visit/Account:[id number] Date of Sevice: 08/14/2018 Exam type: SMALL BOWEL SERIES History: SBO, H/O gastric bypass, water soluble contrast only Comparison: KUB performed earlier today. Findings: The patient received a Gastrografin suspension through the NG tube. The patient is status post gastr ic bypass. The NG tube passed through the gastric pouch into the jejunum. The Gastrografin did pass throughout the small bowel and reached the hepatic flexure and one hour and 45 minutes. There are m ultiple loops of mild to moderately dilated small bowel seen throughout the abdomen measuring up to 4 .7 cm in diameter. Only the proximal jejunal loops did not appear dilated.. No fluoroscopy was perf ormed IMPRESSION: 1. There multiple loops of mild to moderately dilated small bowel throughout the abdomen with only t he proximal jejunal loops appearing normal in diameter. The Gastrografin did however reached the hep atic flexure and one hour and 45 minutes therefore findings are not likely related to a small bowel o bstruction Report Dictated By: Joanna Holley MD at 08/14/2018 3:50 PM Report E-Signed By: Joanna Holley MD at 08/14/2018 3:54 PM WSN:[email or web address]
[2018-08-14 19:22] VITALS: BP 139/82
[2018-08-14 22:31] VITALS: BP 131/105
[2018-08-14] MEDS: MELATONIN 3 MG TAB PO SCH (22:32)
[2018-08-14] MEDS: MONTELUKAST SODIUM 10 MG TAB PO SCH (22:33)
--- NOTE | 2018-08-15 06:06 | RADIOLOGY IMAGING REPORT ---
FACILITY: [facility] - [place] PATIENT NAME: Devonte Price : 1940 MR: [id number] V: [id number] EXAM DATE: ORDERING PHYSICIAN: BALDOMERO JOHNSON TECHNOLOGIST: Location: [facility] Patient: Devonte Price : 1940 Visit/Account:[id number] Date of Sevice: 08/15/2018 KUB SINGLE VIEW ABDOMEN HISTORY: Small bowel obstruction. Follow-up. COMPARISON: 08/14/2018 and 08/13/2018. FINDINGS: 2 supine views of the abdomen were obtained. Distribution of bowel gas is normal with bowel in all four quadrants as well as centrally. There are fewer dilated small bowel loops No free air. There is posterior lumbar fusion from L3 through L5. Hardware is intact. There is a mild to moderate leftward curvature of the lumbar spine. There is stable degenerative change of the spine, moderate to severe. IMPRESSION: 1. Fewer dilated small bowel loops, compatible with resolving small bowel obstruction or ileus. Report Dictated By: Bita Hickman at 08/15/2018 5:59 AM Report E-Signed By: Bita Hickman at 08/15/2018 6:01 AM WSN:[id number]
[2018-08-15 06:13] LABS: PLATELET COUNT, AUTOMATED 204 K/uL (150-450)
--- NOTE | 2018-08-15 06:47 | General Surgery Progress Note ---
Subjective Progress Notes Subjective No complaints this morning. Passing flatus and stool. Physical Exam Vital Signs Date Time Temp Pulse Resp B/P (MAP) Pulse Ox O2 Delivery O2 Flow Rate FiO2 08/15/18 06:28 48 08/14/18 22:31 98.7 18 131/105 (114) 94 Nasal Cannula 2.0 Intake and Output 08/15/18 07:00 Intake Total 2492 ml Output Total 1475 ml Balance 1017 ml Intake Oral 500 ml IV Total 1992 ml Output Urine Total 1475 ml # Voids 6 # Bowel Movements 2 General Appearance: Alert, Awake, No Acute Distress, Afebrile GI: Soft and Non-Tender Extremities: Warm, Perfused Result Diagram: 08/15/18 0537 08/15/18 0537 Assessment and Plan Problems: (1) SBO (small bowel obstruction) Status: Acute Assessment & Plan: 08/13/18: Admit, will start with conservative management with bowel rest, we'll keep him nothing by mouth with IV fluids. If he fails to improve over the next couple of days then he may require surgical exploration. May consider a water soluble small bowel follow-through if he fails to improve over the next 24 hours or so. I have explained bowel obstructions with this pat ient as well as their treatment and I have explained this plan to him. He seems to understand and seems agreeable with this plan. 08/13/18: Feels a little better but no flatus or BM although pain and exam seem to be somewhat improved. Continue bowel rest and IV fluids. Will check KUB tomorrow morning. If not resolved by tomorrow will get a SBFT with water- soluble contrast. Pt agreeable with this plan. 08/14/18: Feeling a little better this morning. Still no flatus. Will get a water-soluble SBFT today and see if he'll open up. Continue bowel rest, IV fluids, NG tube decompression. 08/15/18: Doing well. SBO seems to be resolving. SBFT yesterday revealed contrast making it to colon. KUB this morning with mild but improving small bowel dilation. Clear diet today. O/W CCM. Condition Stable. Time Spent: < 30 min Exam Sepsis Risk: No Definite Risk BALDOMERO JOHNSON MD Aug 15, 2018 06:46
[2018-08-15] MEDS: KCL/D1/2NS 20 MEQ 1000 ML 1,000 ML IV SCH (07:32)
[2018-08-15 07:35] VITALS: BP 113/71
[2018-08-15] MEDS: ENOXAPARIN 40 MG/0.4ML SYR SC SCH (09:31)
[2018-08-15] MEDS: PANTOPRAZOLE SOD 40 MG IV VIAL IVP SCH (09:31)
[2018-08-15] MEDS: LOSARTAN POTASSIUM 50 MG TAB PO SCH (09:32)
--- NOTE | 2018-08-15 12:55 | Medical Nutrition Therapy ---
Nutrition Anthropometrics Height (Inches): 67.00 Height (Calculated Centimeters: 170.726495 Weight (Pounds): 233 Weight (Calculated Kilograms): 105.687 BMI: 36.5 Jase Nutrition Score: Adequate Jase Nutrition Risk Score: 19 Dietary Referral Nutrition Risk Factors: Nutrition Risk Comment: Small bowel obstruction. Physical Findings Physical Appearance: Obese BMI 30-39 Skin Appearance Skin Appearance: Edema Edema Location Modifier: Edema Location: Type of Edema: Degree of Edema: Gastrointestinal Symptoms GI Symtoms: Diarrhea Tube Present: NG Bowel Sounds: Recent Bowel Pattern: Stool Characteristics: Nutritional Diagnosis Nutritional Risk Acuity 1: GI Obstruction Past Medical History: Hx of Afib, HTN, COPD, pneumonia, Obstructive Sleep [place], and intrinsic asthma, gastric bypass. Nutritional Acuity: 1-High Nutrition Diagnosis: Altered GI Function Nutrition Etiology: Physiological Causes Nutrition Problem/Etiology/Sym: Altered GI function r/t physiological causes AEB obstruction, no flatus or bowel movements. Energy Requirement: 1590 (Price-[place] adj for obesity * 1.2) Protein Requirement: 95 (.9g/kg) Fluid Requirement: 2100 (20ml/kg) Diet Type: Clear Liquids Nutrition Intervention: Incr diet as tolerated Nutrition Monitoring & Eval Nutrition Goals: Eat 75-100% Meal, Drink > 1500 cc/day RD Patient Assessment Time: [address] Assessment Type: RD Re-Assessment Patient Nutrition Acuity: 1-High Follow Up Date: Aug 18, 2018 Nutritional Comment: 08/13 Pt admitted with SBO. Pt is NPO/Meds only. Hx of A-fib, HTN, COPD, pneumonia, Obstructive Sleep [place], intrinsic asthma, and gastric bypass (2003). Pt's pain is better this morning, but still has bloating, no flatus or bowel movement since admission. Pt has elevated glucose at 162 and BUN at 23. Pt has 3+ edema, anticipate weight loss. Will follow. TB 08/15 Pt advanced to Clear liquid diet. No complaints this am, passing flatus and stool. Decreasing levels of Hgb at 9.7, Hct at 31.6. Increasing level of chloride at 114. Will monitor GI symptoms related to increase of PO intake. TB JUN ASTORGA Aug 15, 2018 08:52
[2018-08-15 15:13] VITALS: BP 127/77
[2018-08-15 19:35] VITALS: BP 160/105
[2018-08-15 19:41] VITALS: BP 146/94
[2018-08-15] MEDS: FLUTICASONE PROP 0.05% 16 GM PRN (20:25)
[2018-08-15 22:27] VITALS: BP 141/92
[2018-08-15] MEDS: MONTELUKAST SODIUM 10 MG TAB PO SCH (22:31)
[2018-08-15] MEDS: MELATONIN 3 MG TAB PO SCH (22:31)
[2018-08-16 03:22] VITALS: BP 134/69
[2018-08-16] MEDS: KCL/D1/2NS 20 MEQ 1000 ML 1,000 ML IV SCH (05:38)
[2018-08-16 08:09] VITALS: BP 153/85
--- NOTE | 2018-08-16 08:39 | General Surgery Progress Note ---
Subjective Progress Notes Subjective No complaints this morning. No abdominal pain. Tolerating clear diet. Passing flatus and BMs. Physical Exam Vital Signs Date Time Temp Pulse Resp B/P (MAP) Pulse Ox O2 Delivery O2 Flow Rate FiO2 08/16/18 08:09 97.8 58 15 153/85 (107) 90 Nasal Cannula 2.0 Intake and Output 08/16/18 06:59 Intake Total 2389 ml Output Total 300 ml Balance 2089 ml Intake Oral 1220 ml IV Total 1169 ml Output Urine Total 300 ml # Voids 1 General Appearance: Alert, Awake, No Acute Distress, Afebrile GI: Soft and Non-Tender Extremities: Warm, Perfused Result Diagram: 08/15/1837 08/15/1837 Assessment and Plan Problems: (1) SBO (small bowel obstruction) Status: Acute Assessment & Plan: 08/13/18: Admit, will start with conservative management with bowel rest, we'll keep him nothing by mouth with IV fluids. If he fails to improve over the next couple of days then he may require surgical exploration. May consider a water soluble small bowel follow-through if he fails to improve over the next 24 hours or so. I have explained bowel obstructions with this patient as well as their treatment and I have explained this plan to him. He seems to understand and seems agreeable with this plan. 08/13/18: Feels a little better but no flatus or BM although pain and exam seem to be somewhat improved. Continue bowel rest and IV fluids. Will check KUB tomorrow morning. If not resolved by tomorrow will get a SBFT with water- soluble contrast. Pt agreeable with this plan. 08/14/18: Feeling a little better this morning. Still no flatus. Will get a water-soluble SBFT today and see if he'll open up. Continue bowel rest, IV fluids, NG tube decompression. 08/15/18: Doing well. SBO seems to be resolving. SBFT yesterday revealed contrast making it to colon. KUB this morning with mild but improving small bowel dilation. Clear diet today. O/W CCM. 08/16/18: Doing well. SBO seems to be resolved. Will try regular diet today. If he tolerates this then will plan on home later today or tomorrow. Condition STable. Time Spent: < 30 min Exam Sepsis Risk: No Definite Risk BALDOMERO JOHNSON MD Aug 16, 2018 08:39
[2018-08-16] MEDS ORDERED: PANTOPRAZOLE SOD 40 MG TABEC PO SCH (09:00)
[2018-08-16] MEDS: ENOXAPARIN 40 MG/0.4ML SYR SC SCH (09:38)
[2018-08-16] MEDS: LOSARTAN POTASSIUM 50 MG TAB PO SCH (09:38)
[2018-08-16] MEDS: FLUTICASONE PROP 0.05% 16 GM PRN (09:38)
[2018-08-16 15:34] VITALS: BP 154/92
--- NOTE | 2018-08-16 17:17 | Short(Outpt) Discharge Summary ---
Discharge Summary Reason for Hosp/Final Diag: (1) SBO (small bowel obstruction) Status: Acute Hospital Course & Plan: 08/13/18: Admit, will start with conservative management with bowel rest, we'll keep him nothing by mouth with IV fluids. If he fails to improve over the next couple of days then he may require surgical exploration. May consider a water soluble small bowel follow-through if he fails to improve over the next 24 hours or so. I have explained bowel obstructions with this patient as well as their treatment and I have explained this plan to him. He seems to understand and seems agreeable with this plan. 08/13/18: Feels a little better but no flatus or BM although pain and exam seem to be somewhat improved. Continue bowel rest and IV fluids. Will check KUB tomorrow morning. If not resolved by tomorrow will get a SBFT with water- soluble contrast. Pt agreeable with this plan. 08/14/18: Feeling a little better this morning. Still no flatus. Will get a water-soluble SBFT today and see if he'll open up. Continue bowel rest, IV fluids, NG tube decompression. 08/15/18: Doing well. SBO seems to be resolving. SBFT yesterday revealed contrast making it to colon. KUB this morning with mild but improving small bowel dilation. Clear diet today. O/W CCM. 08/16/18: Doing well. SBO seems to be resolved. Will try regular diet today. If he tolerates this then will plan on home later today or tomorrow. 08/16/18 (evening): Doing well. Tolerating regular diet. Passing flatus and 2 BMs today. He wishes to go home. Will d/c to home. Departure Discharge to: Home, Self Care Discharge Instructions Home Meds Active Scripts Montelukast Sodium (SINGULAIR) 10 Mg Tablet, 1 TAB PO HS for 90 Days, #90 TAB 4 Refills Prov:MIK FLORES MD 08/09/18 Rivaroxaban 20 Mg (XARELTO 20 MG) 20 Mg Tablet, 1 TAB PO DAILY, #30 TAB 0 Refills Prov:WU PARADA MD 06/25/15 Reported Medications Diclofenac Sodium 1% Gel (VOLTAREN 1% GEL) 100 Gm Gel..gram., 2 GM TOP BID for 30 Days, #1 TUBE 08/13/18 Triamcinolone Acetonide (Nasacort) 10.8 Ml [place], 2 SPRAYS NS DAILY PRN for ALLERGY SYMPTOMS 06/06/18 Calcium Citrate (CALCIUM CITRATE) 250 Mg Tablet, 250 MG PO DAILY 06/06/18 Cyanocobalamin (Vitamin B-12) (VITAMIN B-12) 1,000 Mcg Tab.subl, 1000 MCG SL DAILY 06/06/18 Losartan Potassium (LOSARTAN POTASSIUM) 50 Mg Tablet, 1 TAB PO DAILY for 90 Days, #90 05/23/18 Melatonin (MELATONIN) 5 Mg Tablet, 10 MG PO HS 05/23/18 Fluticasone/Salmeterol (ADVAIR HFA 115-21 MCG INHALER) 12 Gm Hfa.aer.ad, 2 PUFF IH HS 05/17/18 Cetirizine Hcl (CETIRIZINE HCL) 10 Mg Tablet, 10 MG PO QDAY, TAB 03/07/18 Vit C/E/Zn/Coppr/Lutein/Zeaxan (Preservision Areds 2 Softgel) 1 Each Capsule, 1 CAP BID 03/07/18 Cholecalciferol (Vitamin D3) (VITAMIN D3) 2,000 Unit Capsule, 1 CAP PO DAILY, CAPSULE 11/06/17 Vitamin E Acetate (VITAMIN E) 1,000 Unit Capsule, 1 CAP PO DAILY, CAPSULE 10/30/17 Lutein (LUTEIN) 20 Mg Capsule, 1 CAP PO DAILY, CAPSULE 10/30/17 Gluc 2KCL/Chondr/Mary Hy/Hy Ac (GLUCOSAMINE & CHONDROITIN CAP) 1 Each Capsule, 1 CAP PO DAILY, CAPSULE 10/30/17 Multivit-Min/FA/Lycopen/Lutein (Centrum Silver Men Tablet) 300 Mcg-600 Mcg-300 Mcg Tablet, 1 TAB PO DAILY pt states this is chewable form 10/30/17 Fluticasone Prop 50 Mcg Ns (FLONASE 50 MCG NS) 16 Gm [place].susp, 2 SPRAYS NS PRN, BOT 10/30/17 Albuterol Sulfate (VENTOLIN HFA) 18 Gm Inh, 1-2 PUFF INH QID PRN for 30 Days, INH 05/01/14 Ascorbate Calcium (Vitamin C) 500 Mg Tablet, 1 TAB PO DAILY 11/12/12 Discontinued Scripts Diclofenac Sodium 1% Gel (VOLTAREN 1% GEL) 100 Gm Gel..gram., 2 GM TOP BID for 30 Days, #1 TUBE Prov:MIK FOLRES MD 06/26/18 Follow up Referrals: Internal Medicine - In One Week @ [facility] with MIK FLORES MD Diet: Regular Activity: As Tolerated Special Instructions: Return to the ER if you develop worsening abdominal pain, bloating, nausea, vomiting, you stop passing flatus or bowel movements. Copies to: MIK FLORES MD ; BALDOMERO JOHNSON MD Aug 16, 2018 17:17
== END 2018-08-16 18:00 | disposition home or self-care (01) | DRG 390 ==
LOC: ER 23:49 → MED 08-13 02:36
PROVIDERS: ADMIT Surgery; ATTEND Surgery
PROC: 5A09357 Assistance with Respiratory Ventilation, Less than 24 Consecutive Hours, Continuous Positive Airway Pressure (ICD-10-PCS; principal; 2018-08-13)
PROC: 0D9670Z Drainage of Stomach with Drainage Device, Via Natural or Artificial Opening (ICD-10-PCS; 2018-08-13)
DX: K56.609 Unspecified intestinal obstruction, unspecified as to partial versus complete obstruction (principal); G47.33 Obstructive sleep apnea (adult) (pediatric); I48.2 Chronic atrial fibrillation; I10 Essential (primary) hypertension; Z98.84 Bariatric surgery status; J45.909 Unspecified asthma, uncomplicated; Z90.49 Acquired absence of other specified parts of digestive tract; Z96.653 Presence of artificial knee joint, bilateral; Z88.5 Allergy status to narcotic agent
CPT/HCPCS: 36415; 71045; 74018; 74177; 74250; 81001; 82040; 82150; 82247; 82310; 82374; 82435; 82565; 82947; 83605; 83690; 84075; 84132; 84155; 84295; 84450; 84460; 84484; 84520; 85025; 93005; 96361; 96374; 96375; 96376; 99285; C9113; J0131; J1170; J1650; J2405; J3010; J3480; J3535; J7030; Q9967

== ENCOUNTER → 2018-12-27 | Outpatient (CLI) | payer MEDICARE, BC ==
[2018-05-24 12:00] VITALS: BMI 35.1
[~2018-12-27] MED LIST changes: -AMLO-111 PO; +AMLO-125 PO; -AMLO2.5T76 PO; +AMLO2.5T78 PO; -LOSA100T69 PO; +LOSA100T75 PO; -LOSA50TA74 PO; +LOSA50TA80 PO; +PRED20TA6 PO
[2018-12-27 17:22] LABS: PLATELET COUNT, AUTOMATED 271 K/uL (150-450)
== END ==
LOC: LAB 16:38
PROVIDERS: ATTEND Family Medicine
DX: M10.9 Gout, unspecified (principal); I10 Essential (primary) hypertension; E55.9 Vitamin D deficiency, unspecified
CPT/HCPCS: 36415; 82040; 82247; 82306; 82310; 82374; 82435; 82565; 82947; 84075; 84132; 84155; 84295; 84450; 84460; 84520; 84550; 85025

== ENCOUNTER 2019-05-01 00:44 | Day surgery (SDC) | payer MEDICARE, BC ==
[2018-05-24 12:00] VITALS: Ht 170.2 cm; Wt 97.5 kg
[~2019-05-01] VITALS: Ht 170.2 cm; Wt 97.5 kg
[~2019-05-01 00:44] MED LIST changes: +CHOL500050 PO; +FERR325T24 PO; +MELA5TAB3 PO; -MELA5TAB6 PO; -OMEP-125 PO; +OMEP-126 PO
[2019-05-01] MEDS ORDERED: LIDOCAINE MPF 1% 5 ML VIAL ONE (07:04)
[2019-05-01] MEDS ORDERED: PROPOFOL EMUL(*) 10MG/ML 20 ML 60 ML ONE (07:04)
[2019-05-01] MEDS ORDERED: NORMOSOL R SOLN(*) 1000 ML BAG 1,000 ML IV PRN (09:30)
[2019-05-01] MEDS ORDERED: LIDOCAINE/SOD BICARB 8.4% SYR ID ONE (09:30)
[2019-05-01 09:31] VITALS: BP 156/112
[2019-05-01 12:07] VITALS: BP 119/83
--- NOTE | 2019-05-01 12:22 | NUR ---
1217 SBAR REPORT WAS RECEIVED FROM Yaneli DAVIDSON RN
--- NOTE | 2019-05-01 12:22 | Short(Outpt) Discharge Summary ---
Discharge Summary Reason for Hosp/Final Diag: (1) Colon cancer screening Status: Chronic Hospital Course & Plan: Colonoscopy with polypectomy x4 and snare biopsy of cecal mass completed without problems. (2) Mass of cecum Status: Chronic Departure Discharge to: Home, Self Care Discharge Instructions Home Meds Active Scripts Cholecalciferol (Vitamin D3) (VITAMIN D3) 50,000 Unit Capsule, 1 CAP PO QWEEK, #8 CAPSULE Take 1 capsule every week and then recheck bloodwork at [facility] on 06/24/19 Prov:MIK FLORES MD 04/29/19 Rivaroxaban 20 Mg (XARELTO 20 MG) 20 Mg Tablet, 1 TAB PO DAILY for 90 Days, #90 TAB 2 Refills Prov:MIK FLORES MD 03/11/19 Ferrous Sulfate (IRON) 325 Mg Tablet, 1 TAB PO DAILY for 90 Days, #90 TAB Prov:MIK FLORES MD 01/01/19 Fluticasone/Salmeterol (ADVAIR HFA 115-21 MCG INHALER) 12 Gm Hfa.aer.ad, 2 PUFF IH HS, #1 BOTTLE 1 Refill Prov:YESSY ARMSTRONG APRN VERMIN EXTERMINATOR-C 12/12/18 Montelukast Sodium (SINGULAIR) 10 Mg Tablet, 1 TAB PO HS for 90 Days, #90 TAB 4 Refills Prov:MIK FLORES MD 08/09/18 Reported Medications Diclofenac Sodium 1% Gel (VOLTAREN 1% GEL) 100 Gm Gel..gram., 2 GM TOP BID for 30 Days, #1 TUBE 08/13/18 Triamcinolone Acetonide (Nasacort) 10.8 Ml [place], 2 SPRAYS NS DAILY PRN for ALLERGY SYMPTOMS 06/06/18 Calcium Citrate (CALCIUM CITRATE) 250 Mg Tablet, 250 MG PO DAILY 06/06/18 Cyanocobalamin (Vitamin B-12) (VITAMIN B-12) 1,000 Mcg Tab.subl, 1000 MCG SL DAILY 06/06/18 Losartan Potassium (LOSARTAN POTASSIUM) 50 Mg Tablet, 1 TAB PO DAILY for 90 Days, #90 05/23/18 Melatonin (MELATONIN) 5 Mg Tablet, 10 MG PO HS 05/23/18 Vit C/E/Zn/Coppr/Lutein/Zeaxan (Preservision Areds 2 Softgel) 1 Each Capsule, 1 CAP BID 03/07/18 Vitamin E Acetate (VITAMIN E) 1,000 Unit Capsule, 1 CAP PO DAILY, CAPSULE 10/30/17 Lutein (LUTEIN) 20 Mg Capsule, 1 CAP PO DAILY, CAPSULE 10/30/17 Gluc 2KCL/Chondr/Mary Hy/Hy Ac (GLUCOSAMINE & CHONDROITIN CAP) 1 Each Capsule, 1 CAP PO DAILY, CAPSULE 10/30/17 Multivit-Min/FA/Lycopen/Lutein (Centrum Silver Men Tablet) 300 Mcg-600 Mcg-300 Mcg Tablet, 1 TAB PO DAILY pt states this is chewable form 10/30/17 Fluticasone Prop 50 Mcg Ns (FLONASE 50 MCG NS) 16 Gm [place].susp, 2 SPRAYS NS PRN, BOT 10/30/17 Albuterol Sulfate (VENTOLIN HFA) 18 Gm Inh, 1-2 PUFF INH QID PRN for 30 Days, INH 05/01/14 Ascorbate Calcium (Vitamin C) 500 Mg Tablet, 1 TAB PO DAILY 11/12/12 Discontinued Reported Medications Cholecalciferol (Vitamin D3) (VITAMIN D3) 2,000 Unit Capsule, 2 CAP PO DAILY 11/06/17 Cetirizine Hcl (CETIRIZINE HCL) 10 Mg Tablet, 10 MG PO QDAY, TAB 03/07/18 Diet: Regular Activity: As Tolerated Special Instructions: Your colonoscopy was completed without problems and your prep was excellent (Good Job!!). I saw a LARGE polyp in your colon that cannot be removed endoscopically due to it's size and then I removed 4 smaller polyps. My office will call you in the next couple of days to schedule you for some labs, a CT scan to evaluate the mass, and they will schedule you with a follow up appointment to discuss all of these results and determine the next course of action with you. BALDOMERO JOHNSON MD May 01, 2019 12:22
--- NOTE | 2019-05-01 12:28 | NUR ---
1223 DR. JOHNSON TALKED WITH PATIENT AND HIS SPOUSE 1225 PATIENTS O2 WAS MOVED TO 2 LITERS OXYMASK. HE DENIES ANY PAIN OR NAUSEA.
[2019-05-01 12:30] VITALS: BP 129/99
--- NOTE | 2019-05-01 12:37 | NUR ---
1231 PATIENT WAS MOVED TO ROOM AIR AND APPEARS TO BE TOLERATING THIS WELL 1232 PATIENT BEGAN EATING JELLO AND PUDDING AND DRINKING WATER
[2019-05-01 12:53] VITALS: BP 127/94
[2019-05-01 12:54] VITALS: BP 130/71
--- NOTE | 2019-05-01 12:57 | NUR ---
1253 PATIENT BEGAN DOING ORTHOSTATICS. HE DENIES ANY DIZZINESS OR LIGHTHEADEDNESS 1254 PATIENT BEGAN STANDING. HE STATED HE BEGAN TO FEEL LIGHTHEADED. HE SAT DOWN FOR A TIME TO LET IT PASS 1255 PATIENT BEGAN DRINKING WATER
--- NOTE | 2019-05-01 13:04 | NUR ---
1304 PATIENT WAS ABLE TO STAND AND DENIES ANY LIGHTHEADEDNESS. HE WAS ABLE TO WALK HIMSELF TO THE BATHROOM TO VOID
--- NOTE | 2019-05-01 13:30 | NUR ---
7734 PATIENT WAS DC'D VIA WHEELCHAIR. HE DENIES ANY PAIN OR NAUSEA. HE STATES HE NO LONGER FEELS LIGHTHEADED. SEE DISCHARGE ASSESSMENT.
== END 2019-05-01 13:30 | disposition home or self-care (01) ==
LOC: OR 00:44
PROVIDERS: ATTEND Surgery
DX: Z12.11 Encounter for screening for malignant neoplasm of colon (principal); D12.4 Benign neoplasm of descending colon; D12.5 Benign neoplasm of sigmoid colon; K63.9 Disease of intestine, unspecified
CPT/HCPCS: 00811; 45385; 88305; J2001; J2704

== ENCOUNTER → 2019-05-03 | Outpatient (CLI) | payer MEDICARE, BC ==
[2018-05-24 12:00] VITALS: BMI 35.1
[~2019-05-03] MED LIST changes: +IOPAMIDOL 76% 100 ML INFUS BTL 100 ML ONE
--- NOTE | 2019-05-03 16:48 | RADIOLOGY IMAGING REPORT ---
FACILITY: [facility] [place] PATIENT NAME: Devonte Price : 1940 MR: [id number] V: [id number] EXAM DATE: ORDERING PHYSICIAN: BALDOMERO JOHNSON TECHNOLOGIST: Location: [facility] Patient: Devonte Priec : 1940 Visit/Account:[id number] Date of Sevice: 05/03/2019 CT CHEST ABDOMEN PELVIS W/CON HISTORY: Cecal mass. TECHNIQUE: CT chest, abdomen and pelvis with intravenous contrast. One of the following dose optimization techniques was utilized in the performance of this exam: Autom ated exposure control; adjustment of the mA and/or kV according to the patient's size; or use of an i terative reconstruction technique. Specific details can be referenced in the facility's radiology C T exam operational policy. CONTRAST: 75 mL [id number]. COMPARISON: CT abdomen/pelvis dated August 13, 2018. FINDINGS: CHEST: Heart/vessels: Prominence of the main pulmonary artery measuring up to 3.7 cm which is nonspecific h owever can be seen with pulmonary arterial hypertension. Minimal atherosclerosis within the thoracic aorta. Minimal calcification within the coronary arteries. Mild left atrial enlargement. Mediastinum: Negative. Lymph nodes: Numerous nonspecific subcentimeter lymph nodes, some of which are calcified. Lungs/pleura: Chronic elevation of the right kidney diaphragm with associated passive atelectasis. Punctate calcified granuloma within the left upper lobe. Bones/soft tissues: No acute or concerning osseous abnormality. Multiple chronic healed anterior ri b fractures. Unremarkable appearance of partially visualized right shoulder arthroplasty. ABDOMEN/PELVIS: Hepatobiliary: Numerous cysts and subcentimeter hypodensities throughout the liver which are too sma ll to characterize however statistically represents cysts. Gallbladder surgically absent. Otherwise negative. Spleen: Calcified granulomas. Subcentimeter hypodensity within the spleen which is nonspecific hayes mary jane unchanged and favored benign. Adrenals: Negative. Pancreas: Negative. Kidneys/: Mild prostate hypertrophy. Otherwise negative. GI: Postsurgical changes within the stomach without visualized complication. There is a benign-appe aring lipoma within the distal ascending colon measuring 4.3 x 4.0 x 9.3 cm (coronal image 45 and axi al image 71), grossly unchanged. No visualized cecal mass or significant wall thickening. Mild nons pecific wall thickening of the cecum and proximal ascending colon. No adjacent nodularity or concern ing lymphadenopathy. No dilated loops of small bowel to suggest obstruction. Vessels/spaces/nodes: Mild atherosclerosis. Nonspecific borderline prominent right iliac chain lymp h nodes which are increased in size since prior exam and asymmetric. For example, a right external i liac/obturator node measures 28 x 12 mm (image 178), previously 20 x 4 mm. A right common iliac lymp h node measures approximately 7 x 11 mm (image 151), previously measuring up to 4 mm. Bones/soft tissues: Grossly unremarkable appearance of lumbar fusion hardware. Multilevel mild/mode rate degenerative disc disease. No acute or concerning osseous abnormality. Small/moderate-sized fa t-containing left inguinal hernia. IMPRESSION: 1. No visualized cecal mass. There is mild nonspecific wall thickening of the cecum and proximal as cending colon, possibly related to underdistention. 2. Nonspecific borderline prominent right iliac chain lymph nodes which have increased in size since prior exam. Findings could be reactive to an unknown infectious/inflammatory process. [place] metast asis cannot be excluded. Consider repeat CT in 3 months. 3. Large lipoma within the distal ascending colon measuring up to 9.3 cm. 4. Additional incidental/chronic findings, as above. Report Dictated By: August Ta MD at 05/03/2019 3:39 PM Report E-Signed By: August Ta MD at 05/03/2019 4:40 PM [id number]
== END ==
LOC: CT 00:40
PROVIDERS: ATTEND Surgery
DX: D17.5 Benign lipomatous neoplasm of intra-abdominal organs (principal)
CPT/HCPCS: 71260; 74177; Q9967